=== PATIENT | male | born 1945 | race Asian ===

== ENCOUNTER 2023-07-01 01:31 | Inpatient (IN) | payer MEDICARE, MEDICAID, SELFPAY ==
[2023-06-30 22:26] VITALS: BP 210/77
[2023-06-30 22:52] VITALS: BP 176/69
[2023-06-30 23:00] VITALS: BP 191/61
[2023-06-30 23:09] LABS: % Basophils 0.3 % (0-2); % Eosinophils 2.8 % (0-6); % Immature Granulocytes 0.4 % (0-0.5); % Lymphocytes 4.3 % (20.5-51.1); % Neutrophils 87.2 % (42.2-75.2); Absolute Eosinophils 0.4 10^3/uL (0-0.7); Absolute Immature Granulocytes 0.1 10^3/uL (0-0.05); Absolute Lymphocytes 0.7 10^3/uL (1.2-3.4); Absolute Monocytes 0.8 10^3/uL (0.1-0.6); Absolute Neutrophils 13.3 10^3/uL (1.4-6.5); Mean Corp Hgb Conc. 32.4 g/dL (33.0-37.0); Mean Corpuscular Hgb 29.3 pg (27.0-31.0); Mean Corpuscular Volume 90.4 fL (80.0-94.0); Mean Platelet Volume 9.7 fL (7.4-10.4); Nucleated Red Blood Cells % 0 % (-); Platelet Count 213 10^3/uL (130-400); Red Blood Cell Count 3.76 10^6/uL (4.70-6.10); Red Cell Dist. Width 17.5 % (11.5-14.5); White Blood Cell Count 15.3 10^3/uL (4.8-10.8)
[2023-06-30 23:15] LABS: Lactic Acid 1.1 mmol/L (0.7-2.0)
[2023-06-30 23:16] LABS: COVID-19 Antigen Negative (Negative)
[2023-06-30 23:20] LABS: ALT (SGPT) 19 U/L (0-50); AST (SGOT) 29 U/L (17-59); Albumin 4.3 g/dl (3.5-5.0); Alkaline Phosphatase 133 U/L (38-126); Blood Urea Nitrogen 45 mg/dl (9-20); Calcium 8.1 mg/dl (8.4-10.2); Carbon Dioxide 23 mmol/L (22-30); Chloride 95 mmol/L (98-107); Estimated Creatinine Clearance 7 ml/min; Glucose 160 mg/dl (70-99); Sodium 135 mmol/L (135-145); Total Bilirubin 0.6 mg/dl (0.2-1.3); Total Protein 7.5 g/dl (6.3-8.2); eGFR 6.49
[2023-06-30 23:32] LABS: NT-proBNP 5660 pg/ml; Troponin I 0.072 ng/ml
[2023-06-30 23:33] VITALS: BP 161/66
[2023-07-01] VITALS (69 sets, daily range): BP systolic 133–229; BP diastolic 48–100; PULSE 71–72; O2SAT 98–99; BMI 27.5
--- NOTE | 2023-07-01 00:16 | ED.GENMED ---
History of Present Illness
General
Chief Complaint: Breathing Problem
Source: patient and family
Exam Limitations: none
Time Seen by Provider: 06/30/23 22:30
Nursing documentation reviewed up to this point in time: agreed with
Travel History
Have you had any contact with someone who has COVID-19?: Unable to Answer
Do you have any symptoms of coronavirus? Fever > 100 degrees, chills, cough, shortness of breath, sore throat, loss of taste or smell, muscle aches, or headache?: Unable to Answer
History of Present Illness
History of Present Illness:
77 yo male w hx ESRD on HD , CHF, CVA, Htn, CAD, IDDM, Hypothyroid, anemia, lives with family, here for cough, sneezing, runny nose and increasing SOB past few days, suddenly worse today. Denies CP, abdominal pain.
Past History
Past History
ED Past Medical History: Other (Hypertension, diabetes, valvular heart disease)
Social History
Tobacco: Non-smoker
Alcohol: None
Family History
Family History: Hypertension
Review of Systems
Review of Systems
Allergies reviewed?: Yes
All Other Systems: ROS reviewed and negative except as documented in HPI and ROS
Constitutional: Reports fever and fatigue
Respiratory: Reports cough and trouble breathing
Cardiac: Denies chest pain
ABD/GI: Denies abdominal pain, nausea, vomiting or diarrhea
: Reports difficulty voiding and other (ESRD, Dialysis pt. Does make some urine)
Musculoskeletal: Denies edema
Skin: Reports other (RUE dialysis shunt)
Neurological: Denies headache or numbness
Phy Exam
Physical Exam
Physical Exam:
GENERAL: Acute distress with difficulty breathing. A&Ox3.
CONSTITUTIONAL: Temp 100.6 rectal
EYES: PERRL, conjunctivae normal
ENMT: moist mucus membranes
RESPIRATORY: Regular respirations, tachypneic, moderately labored, lungs with crackles bases. Pulse ox 96% RA
CARDIOVASCULAR: Regular rate and rhythm, no murmurs, no rubs.
GI: Soft, nontender, normal BS
MUSCULOSKELETAL: Moves with ease. Well perfused. No edema
SKIN: Warm, dry, normal
PSYCH: Anxious mood and affect.
NEUROLOGIC: Awake, alert and oriented. No focal neurological deficits
Scores
Heart Failure Risk
Heart Failure Risk Score: Yes
History of Stroke or TIA: Yes
History of intubation for respiratory distress: No
Heart rate on ED arrival >/= 110: No
SaO2 <90% on arrival on room air: No
HR >/=110 during 3min walk test (or too ill to perform test): Yes
ECG has acute ischemic changes: No
Urea >/=12mmol/L (BUN 33.6mg/dL): Yes
Serum CO2>/=35mmol/L: No
Troponin I or T elevated to ME Level (0.4mg/dL): Yes
NT-proBNP >/=5,000ng/L (5,000pg/ml): Yes
HF Risk Score: 7
Admission Status: VERY HIGH RISK 69.8% Consider admission to hospital
Course
Orders/Labs/Results
Orders:
Orders
06/30/23 22:23
Electrocardiogram (*1) Urgent
Reason for Study: Other
Other Reason for Exam: Respiratory Distress
EKG- Treatment ONCE
06/30/23 22:24
CR Chest Portable - 1 View Urgent
Comment:
Reason For Exam: respiratory distress
Reason Study Needs to be Portable: Patient Unstable
06/30/23 22:49
COVID-19 Antigen Urgent
Source: Nasal Swab
Complete Blood Count/With Diff Urgent
Comprehensive Metabolic Panel Urgent
Lactic Acid Urgent
NT-proBNP Urgent
Troponin I Urgent
06/30/23 22:51
Influenza A+B Rapid Molecular Urgent
RAPHAEL Source: Nasal Swab
Specimen Description:
07/01/23 00:02
Furosemide [Lasix] 40 mg IV NOW STA
07/01/23 01:00
Acetaminophen [Tylenol] 650 mg PO NOW STA
Furosemide [Lasix] 80 mg IV NOW STA
07/01/23 01:04
Admit/Transfer Patient As Directed
Co-Sign Provider:
Level of Care: Inpatient admission
Assign to:: IMU- Intermediate Care
Physician / Group: Con
Diagnosis: Pneumonia, CHF
Reason for Hospitalization: Pneumonia, CHF
Expected length of stay greater than two midnights?: Yes
ELOS- Estimated Length of Stay in days: 4
I certify the patient meets the requirements for IP care: Yes
07/01/23 01:07
Code Status As Directed
Resuscitation Status: Full Code
07/01/23 01:08
Vancomycin [Vancocin] 1,500 mg 0.9% Sodium Chloride [Nss] 20 ml 0.9% Sodium Chloride 250 ml [Nss] 250 ml IV NOW
07/01/23 01:10
Cefepime HCl [Maxipime] 1,000 mg IV NOW STA
Sterile Water [Sterile Water For Injection] 10 ml IV NOW STA
07/01/23 01:35
Blood Culture Q1M
RAPHAEL Source: Blood/Venous
Specimen Description:
Blood Culture Q1M
RAPHAEL Source: Blood/Venous
Specimen Description:
07/01/23 02:00
Flush (0.9% Sodium Chloride) [Flush (Nss)] See Dose Instructions IV PER PROTOCOL
VANCOMYCIN Pharmacy to Dose [VANCOCIN Pharmacy to Dose] 1 each Pharmacy To Prepare [Call Pharmacy To Prepare] 0 ml IV PER PROTOCOL
07/01/23 02:22
Troponin I Q6H
Acetaminophen [Tylenol] 650 mg PO Q4HPRN PRN
Albuterol Nebs [Ventolin Nebules] 2.5 mg INH R Q4HPRN PRN
Dextrose 50%-Water [Dextrose 50% Syringe] 12.5 grams IV [id number] PRN
Glucagon [GlucaGen] 1 mg IM PRN PRN
Morphine Sulfate 2 mg IV Q4HPRN PRN
Polyethylene Glycol Powder [Miralax] 17 grams PO DAILY PRN
07/01/23 02:22
Consult Notification Routine
Specialty to Notify: Nephrology
NEPHROLOGY CONSULT Routine
Consulting Provider: Clara Ayala
Was physician already notified: No
Reason for consult: ESRD
TSH Reflex To Free T4 Routine
Urinalysis Reflex To Culture Routine
Activity As Directed
Activity Level: Ambulate
With Assistance
Bedside Glucose Monitoring As Directed
Frequency: AC&HS
Additional Instructions:: Change to q6h if pt on TPN, tube feeding or not eating
Bladder Scan As Directed
Follow Bladder Retention/Intermittent Cath Algorithm?: Yes
PRN if no void in __ hours: 6
Frequency: Per Retention Algorithm
If Bladder Scan Result >: 400
then:: Straight cath
EKG with chest pain [ECG as needed] As Directed
ECG as needed for:: Chest Pain
I/O [Intake/ Output] As Directed
Frequency: Per unit guidelines
Orthostatic Vital Signs As Directed
Orthostatic VS Frequency: BID
Pneumatic Compression Sleeves As Directed
Type: Knee high
Straight Cath As Directed
Frequency: Per Retention Algorithm
Additional Instructions: straight cath as needed per acute urinary retention algorithm for 24 hrs
Additional Instructions: for bladder scan greater than 400 mL
Vital Signs As Directed
Frequency: Per unit guidelines
Weight As Directed
Frequency: Daily
Oxygen Therapy [O2 Therapy] [RESP] Routine
Titrate/Wean O2 to maintain O2 sat greater than (%): 94
Rx Incentive Spirometry [RESP] Routine
Frequency: q1h while awake
Ot Eval And Treat Routine
PT Consult [Pt Eval And Treat] Routine
Activity Level: Ambulate
With Assistance
DX Deep Vein Thrombosis Video Routine
07/01/23 06:00
EKG [Electrocardiogram (*1)] IN AM
Reason for Study: Chest Pain
2000 calorie (17 carb) Diabetic
At Your Request: Limited, Egg Gatherer Required
Does patient need a safe tray?: No
Fluid Restriction: 1440 mL/day (48 oz)
Basic Metabolic Panel IN AM
Complete Blood Count/No Diff IN AM
Glycohemoglobin (HgbA1c) IN AM
LFT [Vfjpo-Obju-Wqqkycg] IN AM
Magnesium IN AM
Phosphorus IN AM
Levothyroxine [Synthroid] 75 mcg PO DAILY@0600
07/01/23 07:30
Insulin Aspart Corrective Low [Novolog Flexpen-Low Resistance] See Protocol SC AC
Insulin Aspart [NOVOLOG vial] 6 units SC AC
07/01/23 08:00
Clopidogrel Bisulfate [Plavix] 75 mg PO DAILY
Guaifenesin [Mucinex] 600 mg PO Q12
Heparin 5,000 units SC Q12
HydrALAZINE [Apresoline] 50 mg PO TID
ISOSORBIDE MONOnitrate ER [Imdur (Extended Release)] 30 mg PO DAILY
nifedipine 40 mg PO BID
07/01/23 08:22
Troponin I Q6H
07/01/23 14:22
Troponin I Q6H
07/01/23 22:00
Sennosides [Senokot] 17.2 mg PO HS
07/02/23 18:00
Cefepime HCl [Maxipime] 1,000 mg IV QPM
Abnormal Lab Results
06/30/23
22:49
WBC 15.3 H 10^3/uL
(4.8-10.8)
RBC 3.76 L 10^6/uL
(4.70-6.10)
Hgb 11.0 L g/dL
(13.0-18.0)
Hct 34.0 L %
(39.0-52.0)
MCHC 32.4 L g/dL
(33.0-37.0)
RDW 17.5 H %
(11.5-14.5)
Abs Immat Gran (auto) 0.1 H 10^3/uL
(0-0.05)
Absolute Neuts (auto) 13.3 H 10^3/uL
(1.4-6.5)
Absolute Lymphs (auto) 0.7 L 10^3/uL
(1.2-3.4)
Absolute Monos (auto) 0.8 H 10^3/uL
(0.1-0.6)
Neutrophils % 87.2 H %
(42.2-75.2)
Lymphocytes % 4.3 L %
(20.5-51.1)
Chloride 95 L mmol/L
(98-107)
BUN 45 H mg/dl
(9-20)
Creatinine 7.9 H* mg/dL
(0.7-1.3)
Glucose 160 H mg/dl
(70-99)
Calcium 8.1 L mg/dl
(8.4-10.2)
Alkaline Phosphatase 133 H U/L
(38-126)
Troponin I 0.072 H* ng/ml
06/30/23 22:49
06/30/23 22:49
Vital Signs
Initial and Last Documented VS:
Initial Vital Signs
Temp Pulse Resp BP Pulse Ox
98.7 F 95 30 210/77 96
06/30/23 22:26 06/30/23 22:26 06/30/23 22:26 06/30/23 22:26 06/30/23 22:26
Last Documented Vital Signs
Temp Pulse Resp BP Pulse Ox
100.0 F 98 24 194/64 98
07/01/23 02:45 07/01/23 02:30 07/01/23 02:30 07/01/23 01:30 07/01/23 02:45
MDM/Problems Addressed
Differential Diagnosis Includes:
PNA, CHF
MDM/Problems Addressed:
77 yo male w hx ESRD on HD M-W-, CHF, CVA, Htn, CAD, IDDM, Hypothyroid, anemia, lives with family, here for cough, sneezing, runny nose and increasing SOB past few days, suddenly worse today. Denies CP, abdominal pain.
Temp 100.6 rectal
Moderate distress with labored respirations and grunting with relatively unremarkable VS and Pulse ox 96% RA
EKG: NSR Long QT
11:30 p.m.
CBC: WBC15.3 w neutrophilia
CMP: BUN/creat 45/7.9
Troponin mild elevation most likely from CKD, fluid overload
BNP 5660
Covid neg
CXR: Radiology report read: IMPRESSION:
Mild interstitial edema suggests mild CHF or mild volume overload.
Plan: Lasix given. Admit: CHF, ESRD
07/01/23 12:30 a.m.
Pt much more calm. VSS
Hospitalist notified of admission
*Critical Care Note
Total Time (30-74mins, 75-104mins- exclusive of procedures): Not Applicable
ED Attending Note
-
Portions of this chart may have been created with voice recognition software.� Occasional wrong word or��sound alike� substitutions may have occurred due to the inherent limitations of voice recognition software.
Discharge Plan
Departure
Patient Disposition: Admit
Date of Disposition: 07/01/23
Time of Disposition: 00:27
Presentation/result/management discussed w/ accepting MD/DO: Hospitalist
Condition: Fair
Covid-19: Negative COVID-19
Discharge Problem:
CHF (congestive heart failure), ESRD (end stage renal disease) on dialysis
Interventions
Interventions:
*Risk Screen - Suicide Last Done: 06/30/23 22:26
*General Assessment Last Done: 06/30/23 22:26
*Neglect/Abuse Screening Last Done: 06/30/23 22:26
ED- Fall Risk Assessment Last Done: 06/30/23 23:01
*ED COVID-19 Vaccine History Last Done: 07/01/23 02:25
*Nursing Disposition Last Done: 07/01/23 02:15
ED- Cardiac Assessment Last Done: 06/30/23 23:01
ED- Pulmonary Assessment Last Done: 06/30/23 23:01
Discharge Date and Time
Discharge Date/Time: 07/01/23 02:17
--- NOTE | 2023-07-01 01:14 | HPS.HSE ---
Family Physician
-
Family Physician: Ricci Garber
Chief Complaint
-
SOB, Cough
History of Present Illness
Patient is a 77y M with PMH significant for ESRD on HD, HTN and DM-II who presents to ED complaining of cough and SOB. History obtained from patient and from family at the bedside. Patient initially developed cough / cold symptoms about 4 days
ago. Multiple family members at home have recently been ill with similar respiratory complaints. Patient had gradually worsening symptoms of hacking, minimally productive cough. This evening he became increasingly SOB and presented to the ED for
further evaluation.
Patient denies any headache, sore throat, chest pain. He has some upper abdominal discomfort that occurs with coughing. He has been nauseated but has had no emesis.
He denies any diarrhea, black or bloody stools.
He does make urine and denies any new urinary symptoms.
He receives dialysis and has not missed any sessions or had any recent issues.
Medical History
Past Medical History
Past Medical History: Reports Other
Additional Past Medical History:
ESRD on HD (MWF)
ASCVD (Carotid Stenosis, CAD, CVA)
Hypertension
DM-II
Hypothyroidism
Nephrolithiasis
Past Surgical History: Reports Other
Additional Past Surgical History:
PD Catheter Placement / Removal
LUE AVG
Social History
Tobacco: Non-smoker
Alcohol: None
Drug: None
Living: With Family
Family History
Family History: Not pertinent
Allergies / Home Medications
Allergies reflects when Allergies were last updated in [employer].
Home Medications with original date entered in [employer]
Allergy/Medication List:
Allergies
Allergy/AdvReac Type Severity Reaction Status Date / Time
No Known Allergies Allergy Verified 06/30/23 22:33
Home Medications
atorvastatin 10 mg tablet 10 mg PO DAILY 05/09/21
bumetanide 2 mg tablet 4 mg PO DAILY 05/09/21
clopidogrel 75 mg tablet (Plavix) 75 mg PO DAILY 05/09/21
hydralazine 100 mg tablet 50 mg PO TID 05/09/21
insulin aspart U-100 100 unit/mL subcutaneous solution (Novolog U-100 Insulin aspart) 10 unit SC AC 05/09/21
insulin glargine 100 unit/mL (3 mL) subcutaneous pen (Lantus Solostar U-100 Insulin) 11 unit SC HS 05/09/21
levothyroxine 75 mcg tablet (Euthyrox) 75 mcg PO DAILY 05/09/21
lisinopril 20 mg tablet 40 mg PO DAILY 05/09/21
nifedipine 20 mg capsule 40 mg PO BID 05/09/21
omeprazole 40 mg capsule,delayed release 40 mg PO DAILY 05/09/21
cholecalciferol (vitamin D3) 25 mcg (1,000 unit) tablet (Vitamin D3) 25 mcg PO DAILY 08/13/22
therapeutic multivitamin 1 tab PO DAILY 08/13/22
acetaminophen 500 mg tablet (Tylenol Extra Strength) 1,000 mg PO Q6H PRN fever 06/30/23
guaifenesin 100 mg/5 mL oral liquid 200 mg PO Q8HPRN PRN cough 06/30/23
isosorbide mononitrate 30 mg tablet,extended release 24 hr 30 mg PO DAILY 06/30/23
ondansetron HCl 4 mg tablet 4 mg PO Q8H PRN nausea 06/30/23
Review of Systems
-
History Source: Patient and Family
A 12 point ROS was completed and negative except as noted: Yes
Constitutional: Reports Fever, Fatigue and Chills
EENT: Denies Sore Throat
Respiratory: Reports Cough and Trouble Breathing
Cardiac: Denies Chest Pain or Palpitations
Abdomen/GI: Reports Abdominal Pain, Nausea and Other (Abdominal distention.); Denies Vomiting, Diarrhea, Constipated, Bloody Stools or Black Stools
: Denies Dysuria, Frequency or Flank Pain
Musculoskeletal: Denies Joint Pain or Edema
Neurological: Denies Dizzy or Headache
Psych: Denies Depression or Anxiety
Physical Exam
Vital Signs
Vital Signs
Temp Pulse Resp BP Pulse Ox
100.6 F H 82 24 163/70 95
06/30/23 23:00 07/01/23 00:45 07/01/23 00:45 07/01/23 00:00 07/01/23 00:45
Physical Exam
General: Other (Ill-appearing 77y M in moderate distress due to cough / dyspnea.)
HEENT: Other (Dry MM, poor dentition. )
Respiratory: Other (Coarse breath sounds mostly appreciated over the R base. Pos scattered rales and expiratory wheezes.)
Cardiac: S1/S2, Regular Rhythm and Murmur (II/ RISHABH); No Rub
GI: Soft, Normal Bowel Sounds and Other (Mild epigastric tenderness. Softly distended. Pos BS.)
Musculoskeletal: No Clubbing, No Cyanosis and No Edema
Hematologic/Lymphatic: Other (LUE AVG with palpable thrill.)
Psych: No Anxious or Depressed
Laboratory Results
-
06/30/23 22:49
06/30/23 22:49
Laboratory Results
Lactic Acid 1.1 mmol/L (0.7-2.0) 06/30/23 22:49
Total Bilirubin 0.6 mg/dl (0.2-1.3) 06/30/23 22:49
AST 29 U/L (17-59) 06/30/23 22:49
ALT 19 U/L (0-50) 06/30/23 22:49
Alkaline Phosphatase 133 U/L (38-126) H 06/30/23 22:49
Troponin I 0.072 ng/ml H* 06/30/23 22:49
Impression/Plan
-
A/P: Patient is a 77y M with PMH significant for ESRD on HD, ASCVD, HTN and DM-II who presents to ED complaining of several days of progressive cough and SOB.
Pneumonia
Sepsis secondary to the above
- Admit for further evaluation and treatment.
- Patient presents with fever, tachypnea and leukocytosis with cough / respiratory complaints and recent known sick contacts.
- IV abx. Check blood cultures. Check UA / culture as patient is not anuric.
- COVID and Flu negative in the ED this evening.
- Supportive care including nebs, mucolytics, etc.
- Follow for clinical improvement.
Acute on Chronic HFpEF
ESRD on HD
- Suspect that infectious process is primary issue here; however, patient likely does have contributing degree of hypervolemia.
- Has abdominal distention which is typically where he 'holds' his fluid build up.
- IV Lasix x 1 dose now.
- Nephrology evaluation for HD needs in the AM.
- Follow daily weights, I/Os, etc.
ASCVD
- Stable. Patient denies any chest pain / palpitations.
- Continue usual CV med regimen including Plavix, statin, etc.
- Monitor on telemetry.
Benign Hypertension
- Stable. Continue usual outpatient med regimen with holding parameters.
- Adjust as needed for BP control.
DM-II
- Stable. Continue basal : bolus insulin regimen.
- Follow glucose and cover with SSI as needed.
- Update A1C.
Non-Ischemic Myocardial Injury
- Troponin mildly elevated on initial labs.
- Suspect this is secondary to mild hypervolemia, acute infectious process / sepsis and HD status.
- EKG is without evident / acute ischemia.
- Continue to follow troponin to peak.
DVT Prophylaxis: Subcut Heparin
Code Status: Full
[2023-07-01] MEDS: TYLENOL 650 MG PO (01:26)
[2023-07-01] MEDS: VANCOCIN 300 ML IV (01:26)
[2023-07-01] MEDS: VANCOCIN 300 MG IV (01:26)
[2023-07-01] MEDS: STERILE WATER FOR INJECTION 10 ML IV ×2 (01:26→20:22)
[2023-07-01] MEDS: MAXIPIME 1000 MG IV ×2 (01:27→20:22)
[2023-07-01] MEDS: LASIX 80 MG IV (01:27)
[2023-07-01] MEDS: ROBITUSSIN 200 MG PO (02:49)
--- NOTE | 2023-07-01 03:12 | PTCARENOTE ---
Received report from ED RN. Pt. arrived to ICU [id number] via stretcher. AAOx3. HUTCHINSON, weak. HUSLIA. SR on tele, HR 80-90s. Hypertensive 180-190 systolic. GENOVEVA Lucas notified- monitor for now, until cough and restlessness improves then reeavulate need for
PRN meds. Trace LE edema. On 2L NC, pulse ox 98%. Audible wheeze present. Scattered crackles 1/[address] up B/L. Harsh productive cough. Robitussin given. Sputum clear, frothy. RR 20s-30s. Round abd, hypoactive bowel sounds. Complaints of tenderness in
abdomen from coughing. Pt. reports he voids twice normally at home- will monitor for void. L UE fistula + B/T. R AC #20 with vanco infusing. Call anthony in reach.
[2023-07-01] MEDS: VENTOLIN NEBULES 2.5 MG INH ×5 (03:53→23:09)
[2023-07-01 04:06] LABS: Hematocrit 30.5 % (39.0-52.0); Hemoglobin 9.8 g/dL (13.0-18.0); Mean Corp Hgb Conc. 32.1 g/dL (33.0-37.0); Mean Corpuscular Hgb 29.2 pg (27.0-31.0); Mean Corpuscular Volume 90.8 fL (80.0-94.0); Mean Platelet Volume 10.1 fL (7.4-10.4); Platelet Count 197 10^3/uL (130-400); Red Blood Cell Count 3.36 10^6/uL (4.70-6.10); Red Cell Dist. Width 17.2 % (11.5-14.5); White Blood Cell Count 16.3 10^3/uL (4.8-10.8)
[2023-07-01 04:36] LABS: ALT (SGPT) 17 U/L (0-50); AST (SGOT) 23 U/L (17-59); Albumin 3.7 g/dl (3.5-5.0); Alkaline Phosphatase 123 U/L (38-126); Blood Urea Nitrogen 46 mg/dl (9-20); Calcium 7.6 mg/dl (8.4-10.2); Carbon Dioxide 23 mmol/L (22-30); Chloride 96 mmol/L (98-107); Direct Bilirubin 0.6 mg/dl (0.0-0.4); Estimated Creatinine Clearance 7 ml/min; Glucose 176 mg/dl (70-99); Magnesium 1.9 mg/dl (1.6-2.3); Phosphorus 3.7 mg/dl (2.5-4.5); Potassium 4.2 mmol/L (3.5-5.1); Sodium 135 mmol/L (135-145); Total Bilirubin 0.6 mg/dl (0.2-1.3); Total Protein 6.6 g/dl (6.3-8.2); eGFR 6.03
[2023-07-01 04:40] LABS: Troponin I 0.082 ng/ml
--- NOTE | 2023-07-01 04:50 | PTCARENOTE ---
BP remained elevated SBP >180 until pt. fell asleep after receiving PRN neb treatment. Once asleep, BP 150s/60s. FIELD [employer] CREWMEMBER aware. Nitro gtt ordered to maintain SBP<160. Will start gtt PRN.
[2023-07-01 04:58] LABS: TSH Reflex To Free T4 1.76 uIU/ml (0.47-4.68)
[2023-07-01] MEDS: SYNTHROID 75 MCG PO (05:53)
[2023-07-01] MEDS: APRESOLINE 50 MG PO ×3 (06:13→22:02)
[2023-07-01] MEDS: IMDUR (EXTENDED RELEASE) 30 MG PO (06:13)
--- NOTE | 2023-07-01 06:15 | PTCARENOTE ---
BP spiked again to 177/54. Discussed with GENOVEVA Lucas- verbal order to hold off on nitro gtt and first give 0800 doses of hydralazine and imdur that are ordered to see if that controls BP. Doses administered. Will monitor
[2023-07-01] MEDS: MUCINEX 600 MG PO ×2 (07:23→20:21)
[2023-07-01] MEDS: HEPARIN 5000 UNITS SC ×2 (07:23→20:20)
[2023-07-01] MEDS: PLAVIX 75 MG PO (07:23)
[2023-07-01 08:01] LABS: Glucose - Point of Care 167 mg/dl (70-99)
--- NOTE | 2023-07-01 08:03 | PTCARENOTE ---
0700 Patient in bed, on 2L of oxygen. AAO x3, Language barrier, able to understand some Malian. Denies chest pain and nausea. Frequent moist strong, productive cough with white thin mucus. Dyspnea at rest and exertion, course, wheezing. Abdomen
round non-distended. Anuric. Peripheral line : RT AC FLUSHED CAPPED: Left Upper arm AV shunt +bruit +thrill. TRACE EDEMA TO BL LE. oral care self performed. HOB elevated call anthony within reach
--- NOTE | 2023-07-01 08:29 | CM ---
Patient seen at bedside. Patient lives with daughter in 2 story home with one step to enter per prior assessment in August. Patient goes to HD M/W/F at [facility] in [place]. Patient has limited Divehi and Patient daughter assists with
translation. CM to come back in to review discharge planning needs. CM will continue to follow for discharge planning needs.
Plan; home with family watch for VN needs.
--- NOTE | 2023-07-01 08:47 | PHA.VAN.IN ---
Assessment
- Assessment
Renal Function: Patient has ESRD, on chronic Hemodialysis
Hemodialysis Schedule: MWF
Concomitant Antimicrobials: cefepime
Laboratory Tests
07/01/23
09:00
Random Vancomycin 17.2
Level drawn prior to HD
Plan
- Plan
Initial / Loading Dose: Vanc 1500mg - 06/30 01:26
Maintenance Regimen: dosing by level / HD
Monitoring: consider pre-HD level for Wed
Give additional 500mg x1 at end of HD today since pre-HD level < 20
Pharmacokinetics Vancomycin I
- -
Patient Age: 77
Patient Sex: Male
Vancomycin Day #: 1
Indication: Pulmonary/Respiratory
Requesting Provider: Dr. Andujar
Pertinent Antimicrobial Allergies:
NKDA
Height / Weight:
Height 5 ft 6 in
Actual Weight 77.3 kg
Pertinent Past Medical History: ESRD on HD, DM2
- Vital Signs / Lab Results
Temp Pulse Resp BP Pulse Ox
96.5 F L 72 14 177/54 99
07/01/23 07:39 07/01/23 08:14 07/01/23 08:14 07/01/23 06:13 07/01/23 08:14
Lab Results - Hematology
06/30/23 07/01/23
22:49 03:44
WBC 15.3 H 16.3 H
Lab Results - Chemistry
06/30/23 07/01/23
22:49 03:44
BUN 45 H 46 H
Creatinine 7.9 H* 8.4 H*
Estimated Creat Clear 7 7
Albumin 4.3 3.7
06/30/23
22:49
Lactic Acid 1.1
Microbiology Results
06/30/23 22:51 Influenza Types A & B (DIALLO) - Final
Nasal Swab Negative for Influenza A & B, NAAT
Negative results must be combined with clinical observations
and patient history.
Nucleic Acid Amplification test (NAAT)performed on the
[employer] NOW platform.
[2023-07-01] MEDS: NOVOLOG FLEXPEN-LOW RESISTANCE 1 UNITS SC (09:06)
[2023-07-01] MEDS: NOVOLOG FLEXPEN 6 UNITS SC ×3 (09:07→19:10)
[2023-07-01 09:39] LABS: Troponin I 0.098 ng/ml
[2023-07-01 09:40] LABS: Vancomycin Random 17.2 ug/ml
--- NOTE | 2023-07-01 09:54 | W.PN.HOSP.TC ---
Today's Communication/Plan
-
cont ABX
diuresis
HD
follow cultures
Assessment / Plan
Assessment / Plan
pt is a 77 year old male
sepsis due to Pneumonia- Patient presents with fever, tachypnea and leukocytosis with cough / respiratory complaints and recent known sick contacts - IV abx. Check blood cultures. Check UA / culture as patient is not anuric - COVID and Flu
negative - Supportive care including nebs, mucolytics, etc.- Follow for clinical improvement.
Acute on Chronic HFpEF--ESRD on HD- Suspect that infectious process is primary issue here; however, patient likely does have contributing degree of hypervolemia- Has abdominal distention which is typically where he 'holds' his fluid build up-
Nephrology evaluation for HD needs in the AM- Follow daily weights, I/Os, etc.
ASCVD- Stable. Patient denies any chest pain / palpitations - Continue usual CV med regimen including Plavix, statin, etc - Monitor on telemetry.
Essential Hypertension --Stable. Continue usual outpatient med regimen with holding parameters- Adjust as needed for BP control.
DM-II - Stable. Continue basal:bolus insulin regimen - Follow glucose and cover with SSI as needed - Update A1C.
Non-Ischemic Myocardial Injury - Troponin mildly elevated on initial labs - Suspect this is secondary to mild hypervolemia, acute infectious process / sepsis and HD status - EKG is without evident / acute ischemia- Continue to follow troponin to
peak.
DVT Prophylaxis: Subcut Heparin
Code Status: Full
Anticipated Discharge: > 48 hours
Subjective/Interval History
-
Date of Service: July 01, 2023
pt does not speak Niuean
Objective Data
-
Labs:
Laboratory Results
06/30/23 07/01/23
22:49 03:44
WBC 15.3 H 16.3 H
Hgb 11.0 L 9.8 L
Hct 34.0 L 30.5 L
Plt Count 213 197
Sodium 135 135
Potassium 4.0 4.2
Chloride 95 L 96 L
Carbon Dioxide 23 23
BUN 45 H 46 H
Creatinine 7.9 H* 8.4 H*
Glucose 160 H 176 H
Calcium 8.1 L 7.6 L
Total Bilirubin 0.6 0.6
AST 29 23
ALT 19 17
Alkaline Phosphatase 133 H 123
Vital Signs:
max temp for 24 hours
07/01/23
04:04
Temp 100.6 F H
Vital Signs
Temp Pulse Resp BP Pulse Ox
96.5 F L 72 14 177/54 99
07/01/23 07:39 07/01/23 08:14 07/01/23 08:14 07/01/23 06:13 07/01/23 08:14
I&O
06/30/23 07/01/23 07/02/23
06:59 06:59 06:59
Intake Total 250 / 250
Balance 250 / 250
Review of Systems
-
Unable to obtain full review of systems at this time due to: Language Barrier
Respiratory: Reports Cough
Physical Exam
-
General: Well Developed, Well Nourished and No Apparent Distress
HEENT: Normocephalic and Atraumatic
Respiratory: Rhonchi
Cardiac: Regular Rhythm and S1/S2; Negative Murmur
GI: Soft, Nontender, Nondistended and Normal Bowel Sounds
Musculoskeletal: No Clubbing, No Cyanosis and No Edema
Skin: Warm
Neuro: Awake
--- NOTE | 2023-07-01 10:41 | W.CON.NEPH ---
Consultation
-
Date/Time Consultation Requested: 07/01/23 7a
Date/Time Consultation Performed: 07/01/23 9a
Requesting Provider: Dr. Andujar
Performing Provider: Dr Waters
Reason for Consultation: ESRD
Medical History
-
Chief Complaint: ESRD
History of Present Illness:
This is a 77-year-old [place] male with end-stage renal disease on hemodialysis for 5 years time via an AV graft in the left upper arm. He had undergone dialysis on Saturday without difficulty. By his report as well as his family's he began having
some congestion night. He went to dialysis on Saturday without issue. On Saturday the congestion became worse and he developed a fever. He also developed shortness of breath. As a result he came to the emergency room yesterday and was
admitted. He is presumed to have sepsis from pneumonia. His diabetes is controlled on insulin therapy and he has hypertension which is controlled on a multidrug regimen. We are asked to assist with his ESRD.
Past Medical History
ESRD, anemia, coronary artery disease, diabetes mellitus type 2, carotid stenosis, hypothyroidism, hypertension
Social History
Tobacco: Non-Smoker
Alcohol: None
Family History
Family History: Not Pertinent
Allergies / Home Medications
Allergy/AdvReac Type Severity Reaction Status Date / Time
No Known Allergies Allergy Verified 06/30/23 22:33
�Medication �Instructions �Recorded �Confirmed �Type
atorvastatin 10 mg tablet 10 mg PO DAILY 05/09/21 06/30/23 History
bumetanide 2 mg tablet 4 mg PO DAILY 05/09/21 06/30/23 History
clopidogrel 75 mg tablet (Plavix) 75 mg PO DAILY 05/09/21 06/30/23 History
hydralazine 100 mg tablet 50 mg PO TID 05/09/21 06/30/23 History
insulin aspart U-100 100 unit/mL 10 unit SC AC 05/09/21 06/30/23 History
subcutaneous solution (Novolog
U-100 Insulin aspart)
insulin glargine 100 unit/mL (3 11 unit SC HS 05/09/21 06/30/23 History
mL) subcutaneous pen (Lantus
Solostar U-100 Insulin)
levothyroxine 75 mcg tablet 75 mcg PO DAILY 05/09/21 06/30/23 History
(Euthyrox)
lisinopril 20 mg tablet 40 mg PO DAILY 05/09/21 06/30/23 History
nifedipine 20 mg capsule 40 mg PO BID 05/09/21 06/30/23 History
omeprazole 40 mg capsule,delayed 40 mg PO DAILY 05/09/21 06/30/23 History
release
cholecalciferol (vitamin D3) 25 25 mcg PO DAILY 08/13/22 06/30/23 History
mcg (1,000 unit) tablet (Vitamin
D3)
therapeutic multivitamin 1 tab PO DAILY 08/13/22 06/30/23 History
acetaminophen 500 mg tablet 1,000 mg PO Q6H PRN fever 06/30/23 06/30/23 History
(Tylenol Extra Strength)
guaifenesin 100 mg/5 mL oral liquid 200 mg PO Q8HPRN PRN cough 06/30/23 06/30/23 History
isosorbide mononitrate 30 mg 30 mg PO DAILY 06/30/23 06/30/23 History
tablet,extended release 24 hr
ondansetron HCl 4 mg tablet 4 mg PO Q8H PRN nausea 06/30/23 06/30/23 History
Review of Systems
-
Shortness of breath, cough, fever. No chest pain, no abdominal pain, no edema. The remainder of the complete review of systems was negative
Physical Exam
Vital Signs
Vital Signs
Temp Pulse Resp BP Pulse Ox
96.5 F L 72 14 177/54 99
07/01/23 07:39 07/01/23 08:14 07/01/23 08:14 07/01/23 06:13 07/01/23 08:14
Lab Results
WBC 16.3 10^3/uL (4.8-10.8) H 07/01/23 03:44
RBC 3.36 10^6/uL (4.70-6.10) L 07/01/23 03:44
Hgb 9.8 g/dL (13.0-18.0) L 07/01/23 03:44
Hct 30.5 % (39.0-52.0) L 07/01/23 03:44
Plt Count 197 10^3/uL (130-400) 07/01/23 03:44
Sodium 135 mmol/L (135-145) 07/01/23 03:44
Potassium 4.2 mmol/L (3.5-5.1) 07/01/23 03:44
Chloride 96 mmol/L (98-107) L 07/01/23 03:44
Carbon Dioxide 23 mmol/L (22-30) 07/01/23 03:44
BUN 46 mg/dl (9-20) H 07/01/23 03:44
Creatinine 8.4 mg/dL (0.7-1.3) H* 07/01/23 03:44
eGFR 6.03 07/01/23 03:44
Glucose 176 mg/dl (70-99) H 07/01/23 03:44
Calcium 7.6 mg/dl (8.4-10.2) L 07/01/23 03:44
Phosphorus 3.7 mg/dl (2.5-4.5) 07/01/23 03:44
Vvb-X-Lzhihiywikf Pept 5660 pg/ml 06/30/23 22:49
Albumin 3.7 g/dl (3.5-5.0) 07/01/23 03:44
Physical Exam
Patient is awake alert oriented and in no distress. Mood and affect were pleasant, insight and judgment were good. Pupils are equal round and reactive to light, extraocular movements are intact, sclera were anicteric. Hearing was normal, ears and
nose are intact. Oropharynx was clear. Neck was supple with trachea midline and no thyromegaly. Heart was regular rate and rhythm without rubs. Lower extremities without edema. Lungs were coarse to auscultation bilaterally and with normal
excursion. Bilateral wheezes and rhonchi. Abdomen was soft, nontender, with normal active bowel sounds, and no hepatosplenomegaly. Skin was without rash and with normal turgor. AVG with bruit and thrill.
Data Reviewed
-
Radiology: Image Personally Visualized and interpreted (Chest x-ray on June 30, 2023 by my reading shows mild edema only)
Medical Tests (Nuc Med, Echo etc): Image Personally Visualized and interpreted (EKG on July 01, 2023 by read shows normal sinus rhythm right bundle branch block)
Labs: Labs Reviewed by me (WBC 16.3, hemoglobin 9.8, platelets 197, creatinine 8.4, potassium 4.2)
Old Records: Reviewed
Assessment/Plan
-
Assessment:
ESRD
Pneumonia
Sepsis
CHF
Hypertension
Plan:
Dialysis today
ABDIAS ordered
Antibiotics adjusted for ESRD for sepsis
Await cultures
Discussed with patient and family
[2023-07-01 12:06] LABS: Glucose - Point of Care 129 mg/dl (70-99)
[2023-07-01] MEDS: NOVOLOG FLEXPEN-LOW RESISTANCE SC ×2 (12:33→18:03)
[2023-07-01 12:49] LABS: Glycohemoglobin (HgbA1c) 6.7 % (4.0-5.6)
[2023-07-01] MEDS: PROCARDIA XL (EXTENDED RELEASE) 30 MG PO ×2 (13:51→20:21)
--- NOTE | 2023-07-01 14:09 | PTCARENOTE ---
patient in bed. dialysis in progress. BP 192/66 MAP 102; SR 94; RR 17; POX 100 RA/. Translation provided by pt's daughter who is at the bedside. patient denies chest pain. Frequent non productive strong cough; Course, wheezing through. Appears as if
SOB. Neb Tx provided by RT . HOB elevated. will continue to monitor
--- NOTE | 2023-07-01 14:12 | W.PN.NEPH.HD ---
Assessment
-
Seen on HD. no complaints. VSS, access ok
Progress Note - Hemodialysis
-
Date of Service: July 01, 2023
Duration: 30 minutes and 3 hours
Potassium Bath: 3
Calcium Bath: 2.5
Opti-Dialyzer: 160
Ultrafiltration: EDW
Blood Flow: 400
Dialysate Flow: 600
Heparin: no
EPO: 6000 units
[2023-07-01] MEDS: RETACRIT 6000 UNITS IV (14:44)
[2023-07-01] MEDS: VANCOCIN HCL 500 MG 100 IV (15:21)
[2023-07-01 15:34] LABS: Troponin I 0.113 ng/ml
[2023-07-01] MEDS: NITROGLYCERIN PREMIX 250 IV (16:24)
[2023-07-01] MEDS: MORPHINE SULFATE 2 MG IV (16:36)
[2023-07-01] MEDS: APRESOLINE 10 MG IV (16:51)
--- NOTE | 2023-07-01 17:11 | PTCARENOTE ---
BP via RT upper arm and lower arm 213/76 SR 90 96% RA. Nitro qtt initiated earlier per protocol. At this time nitro at 20mcg infusing via RT AC; Dr Waters notified . New order Hydralazine 10 mg IV administered at 1500 . patient c/o of b/l Le pain 5/10
on pain scale level. per pt's daughter, pt has chronic arthritis pain. patient denies chest pain. denies SOB. On RA 96%, RR 16. however appears dyspnea at rest noted, wheezing. Morphine per prn order administered. Nebs will be administered.
[2023-07-01 18:13] LABS: Glucose - Point of Care 97 mg/dl (70-99)
[2023-07-01 19:22] LABS: Hepatitis B Surface Antigen Negative (Negative)
--- NOTE | 2023-07-01 19:23 | PTCARENOTE ---
patient in bed. AAO x3. Denies chest pain. dyspnea at rest with wheezing noted. Dry frequent strong cough. Atrovent will be order by Dr Brush
--- NOTE | 2023-07-01 20:00 | PTCARENOTE ---
Resumed care of pt laying in bed with family at bedside. Pt able to speak some broken Danish, Family able to translate when needed. pt AAOx3, tremors noted. Restless legs. Hr in the 80's in NSR with occ PVC's on the monitor. POX 100% on 2 LO2 NC.
Pt visibly tachypneic at rest, with audible ex wheezes noted. Pt with frequent moist cough. Lungs dec with ex wheezes. JETT. Hypo bowel, round obese abd. Pt with no urine output, Bladder scanned per MD order, 0 ml scanned at this time. Pt post HD
today 3kg off. Palpable peripheral pulses present. Knee high seq in place. Right AC int infusing Nitro gtt @40mcg/min to keep SBP <160. Pt repositioned per comfort. Will continue to monitor.
[2023-07-01] MEDS: DUONEB 3 ML INH (20:33)
[2023-07-01 21:32] LABS: Hepatitis B Surface Antibody Negative
[2023-07-01] MEDS: SENOKOT 17.1999999999999993 MG PO (22:01)
[2023-07-01] MEDS: LANTUS 0.100000000000000006 UNITS SC (22:01)
[2023-07-01 22:12] LABS: Glucose - Point of Care 233 mg/dl (70-99)
[2023-07-01 23:03] LABS: Troponin I 0.125 ng/ml
[2023-07-02] VITALS (46 sets, daily range): BP systolic 101–197; BP diastolic 40–97; BMI 26.9
[2023-07-02] MEDS: VENTOLIN NEBULES 2.5 MG INH (04:17)
[2023-07-02 04:21] LABS: Hematocrit 30.6 % (39.0-52.0); Mean Corp Hgb Conc. 32.7 g/dL (33.0-37.0); Mean Corpuscular Hgb 29.7 pg (27.0-31.0); Mean Corpuscular Volume 90.8 fL (80.0-94.0); Mean Platelet Volume 9.6 fL (7.4-10.4); Platelet Count 173 10^3/uL (130-400); Red Blood Cell Count 3.37 10^6/uL (4.70-6.10); Red Cell Dist. Width 17.7 % (11.5-14.5); White Blood Cell Count 8.5 10^3/uL (4.8-10.8)
[2023-07-02 04:51] LABS: Troponin I 0.195 ng/ml
[2023-07-02 05:02] LABS: ALT (SGPT) 16 U/L (0-50); AST (SGOT) 37 U/L (17-59); Albumin 3.7 g/dl (3.5-5.0); Alkaline Phosphatase 86 U/L (38-126); Blood Urea Nitrogen 24 mg/dl (9-20); Calcium 8.1 mg/dl (8.4-10.2); Carbon Dioxide 27 mmol/L (22-30); Chloride 97 mmol/L (98-107); Estimated Creatinine Clearance 12 ml/min; Glucose 134 mg/dl (70-99); Potassium 3.9 mmol/L (3.5-5.1); Sodium 138 mmol/L (135-145); Total Bilirubin 0.7 mg/dl (0.2-1.3); Total Protein 6.7 g/dl (6.3-8.2)
--- NOTE | 2023-07-02 05:42 | PTCARENOTE ---
SBP extremely labile. Nitro gtt adjusted accordingly. Troponin results discussed with Fareed TOMAS. Pt denies any complaints of chest pain. Family member sleeping on couch at bedside. Will continue to monitor.
[2023-07-02] MEDS: SYNTHROID 75 MCG PO (06:11)
[2023-07-02 07:55] LABS: Glucose - Point of Care 161 mg/dl (70-99)
[2023-07-02] MEDS: NOVOLOG FLEXPEN 6 UNITS SC ×3 (07:55→17:53)
[2023-07-02] MEDS: NOVOLOG FLEXPEN-LOW RESISTANCE 1 UNITS SC ×2 (07:55→17:53)
[2023-07-02] MEDS: HEPARIN 5000 UNITS SC ×2 (07:56→19:26)
[2023-07-02] MEDS: IMDUR (EXTENDED RELEASE) 30 MG PO ×2 (07:56→10:21)
[2023-07-02] MEDS: APRESOLINE 50 MG PO ×3 (07:56→22:16)
[2023-07-02] MEDS: PROCARDIA XL (EXTENDED RELEASE) 30 MG PO ×2 (07:57→19:28)
[2023-07-02] MEDS: PLAVIX 75 MG PO (07:57)
[2023-07-02] MEDS: MUCINEX 600 MG PO ×2 (07:57→19:27)
[2023-07-02] MEDS: DUONEB 3 ML INH ×4 (08:10→19:41)
--- NOTE | 2023-07-02 08:10 | W.PN.HOSP.TC ---
Today's Communication/Plan
-
Vanc/Cefepime - DC Vanc if MRSA swab neg; likely DC Cefepime if cultures remain negative
acapella
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
possible DC tomorrow
Assessment / Plan
Assessment / Plan
Patient is a 77y M with PMH significant for ESRD on HD, ASCVD, HTN and DM-II who presents to ED complaining of several days of progressive cough and SOB found to have sepsis 2/2 PNA
sepsis due to Pneumonia- Patient presents with fever, tachypnea and leukocytosis with cough / respiratory complaints and recent known sick contacts - IV Vanc/Cefepime. Check blood cultures. Check UA / culture as patient is not anuric - COVID and
Flu negative - Supportive care including nebs, mucolytics, etc.- Follow for clinical improvement.
-F/U MRSA swab, if negative then DC Vanc
-can likely narrow abx and DC tomorrow if cultures remain negative
Acute on Chronic HFpEF--ESRD on HD- Suspect that infectious process is primary issue here; however, patient likely does have contributing degree of hypervolemia- Has abdominal distention which is typically where he 'holds' his fluid build up-
appreciate renal- Follow daily weights, I/Os, etc.
ASCVD- Stable. Patient denies any chest pain / palpitations - Continue usual CV med regimen including Plavix, statin, etc - Monitor on telemetry.
Essential Hypertension -
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
-continue PULPIT OPERATOR regimen and wean nitro; OK to resume PULPIT OPERATOR Lisinopril today per renal
DM-II - Stable. Continue basal:bolus insulin regimen - Follow glucose and cover with SSI as needed - Update A1C.
Non-Ischemic Myocardial Injury - Troponin mildly elevated on initial labs - Suspect this is secondary to mild hypervolemia, acute infectious process / sepsis and HD status - EKG is without evident / acute ischemia- Continue to follow troponin to
peak.
DVT Prophylaxis: Subcut Heparin
Code Status: Full
Anticipated Discharge: 24 - 48 hours
Subjective/Interval History
-
Date of Service: July 02, 2023
states feeling well
breathing stable
Objective Data
-
Labs:
Laboratory Results
07/02/23
04:08
WBC 8.5
Hgb 10.0 L
Hct 30.6 L
Plt Count 173
Sodium 138
Potassium 3.9
Chloride 97 L
Carbon Dioxide 27
BUN 24 H
Creatinine 4.8 H*
Glucose 134 H
Calcium 8.1 L
Total Bilirubin 0.7
AST 37
ALT 16
Alkaline Phosphatase 86
Vital Signs:
Vital Signs
Temp Pulse Resp BP Pulse Ox
98.7 F 87 17 132/64 100
07/02/23 04:16 07/02/23 08:00 07/02/23 08:00 07/02/23 08:00 07/02/23 07:45
I&O
07/01/23 07/02/23 07/03/23
06:59 06:59 06:59
Intake Total 250 / 250 312 / 312
Balance 250 / 250 312 / 312
Review of Systems
-
History Source: Patient
All other systems: Reviewed and negative
Physical Exam
-
General: Well Developed, Well Nourished and No Apparent Distress
HEENT: Normocephalic and Atraumatic
Respiratory: Rhonchi
Cardiac: Regular Rhythm and S1/S2; Negative Murmur
GI: Soft, Nontender, Nondistended and Normal Bowel Sounds
Musculoskeletal: No Clubbing, No Cyanosis and No Edema
Skin: Warm
Neuro: Awake
Psych: Calm
Data Reviewed
-
Diagnostic Radiology: Report Reviewed by me
Labs: Labs Reviewed by me
[2023-07-02] MEDS: ZESTRIL 40 MG PO (09:01)
--- NOTE | 2023-07-02 09:05 | PTCARENOTE ---
pt resting in chair, bp remains high 168/52, did not adjust nitro at this time, gave lisinopril as ordered
--- NOTE | 2023-07-02 09:12 | W.PN.NEPH.PH ---
Today's Communication / Plan
-
HD tomorrow
Assessment/Plan
-
Assessment:
ESRD
Pneumonia
Sepsis
CHF
Hypertension
Plan:
Dialysis tomorrow
ABDIAS on HD
continue Abx for PNA
Await cultures
increase imdur to 60mg, wean gtt
follow troponin trend
-
-
Date of Service: July 02, 2023
CC / HPI / ROS
-
Chief Complaint:
ESRD
History of Present Illness:
on NTG gtt for HTN
tolerated HD yesterday
remains on supplemental O2 and Abx for presumed PNA
Review of Systems:
no CP
minimal SOB
Labs
-
Labs:
WBC 8.5 10^3/uL (4.8-10.8) 07/02/23 04:08
RBC 3.37 10^6/uL (4.70-6.10) L 07/02/23 04:08
Hgb 10.0 g/dL (13.0-18.0) L 07/02/23 04:08
Hct 30.6 % (39.0-52.0) L 07/02/23 04:08
Plt Count 173 10^3/uL (130-400) 07/02/23 04:08
Sodium 138 mmol/L (135-145) 07/02/23 04:08
Potassium 3.9 mmol/L (3.5-5.1) 07/02/23 04:08
Chloride 97 mmol/L (98-107) L 07/02/23 04:08
Carbon Dioxide 27 mmol/L (22-30) 07/02/23 04:08
BUN 24 mg/dl (9-20) H 07/02/23 04:08
Creatinine 4.8 mg/dL (0.7-1.3) H* 07/02/23 04:08
eGFR 11.80 07/02/23 04:08
Glucose 134 mg/dl (70-99) H 07/02/23 04:08
Calcium 8.1 mg/dl (8.4-10.2) L 07/02/23 04:08
Phosphorus 3.7 mg/dl (2.5-4.5) 07/01/23 03:44
Oau-C-Zymkcuzbrkv Pept 5660 pg/ml 06/30/23 22:49
Albumin 3.7 g/dl (3.5-5.0) 07/02/23 04:08
Physical Exam
-
Vital Signs:
Vital Signs
Temp Pulse Resp BP Pulse Ox
98.5 F 86 18 132/64 100
07/02/23 07:20 07/02/23 08:19 07/02/23 08:19 07/02/23 08:00 07/02/23 08:19
Cardiovascular:: Regular rate and rhythm
Respiratory:: Bilateral: Rhonchi and Bilateral: Wheeze
Lung Excursion:: Normal
Abdomen:: Nontender and Soft
Bowel Sounds:: Normal
Extremity Edema:: None: Bilateral:
[2023-07-02 10:21] LABS: Glucose - Point of Care 237 mg/dl (70-99)
[2023-07-02] MEDS: TYLENOL 650 MG PO (10:21)
--- NOTE | 2023-07-02 10:27 | PTCARENOTE ---
Called to pt room because he wasn't feeling well while in chair. Per family, a little dizzy, restless, c/o neck and leg pain. Sats 88% on room air, sbp 140s, felt warm but afebrile, blood sugar in 200s. Returned to bed, placed back on 2lnc.
Medicated with prn tylenol and increased dose of imdur as ordered. Nitro gtt decreased prior to back to bed with sbp 140s. Pt's daughter reported pt felt better in bed, remains sr, sats improved to 100 on 2l, still restless in bed. Daughter
reports that pt uses voltaren gel bid at home as well as lidoderm patches prn.
[2023-07-02 10:56] LABS: Troponin I 0.182 ng/ml
--- NOTE | 2023-07-02 11:41 | PTCARENOTE ---
pt reported tylenol helped a little with discomfort, but still somewhat sob. sats okay, but increased wob. bp improving after additional imdur and lisinopril this am. weaning ntg as charted
[2023-07-02 11:53] LABS: Glucose - Point of Care 203 mg/dl (70-99)
[2023-07-02] MEDS: NOVOLOG FLEXPEN-LOW RESISTANCE 2 UNITS SC (12:57)
--- NOTE | 2023-07-02 14:04 | CM ---
Patient seen at bedside with daughter present in ICU. Patient stated when daughter translated that he feels better. Daughter's impression is that patient better than yesterday. Patient plan is for discharge home with family. CM will continue to
follow for discharge planning needs.
Plan; home with family watch for home O2 needs, VN needs.
--- NOTE | 2023-07-02 16:47 | PTCARENOTE ---
pt remains off ntg since late morning. resting intermittently this afternoon. continues with restless legs, denies any complaints at present.
[2023-07-02 17:59] LABS: Glucose - Point of Care 163 mg/dl (70-99)
--- NOTE | 2023-07-02 18:23 | PTCARENOTE ---
pt opted to get oob to chair for dinner, minimal assist oob.
[2023-07-02] MEDS: MAXIPIME 1000 MG IV (19:26)
[2023-07-02] MEDS: STERILE WATER FOR INJECTION 10 ML IV (19:26)
[2023-07-02] MEDS: DICLOFENAC 1% TOPICAL GEL 2 GRAM TOPICAL (19:27)
[2023-07-02] MEDS: APRESOLINE 10 MG IV (20:41)
--- NOTE | 2023-07-02 22:00 | PTCARENOTE ---
Resumed care of pt laying in bed with family at bedside. Pt AAOx3, able to speak some broken Tuvaluan and understand Tuvaluan, family to help translate when needed. Hand tremors and restless legs noted. Hr in the 80's in NSR with BBB on the monitor.
Occ PVC's. POX 98-100% on 2 LO2 NC. Lungs dec with ex wheezes, scattered crackles/rhonchi, course lungs. JETT, tachypneic. + bowel, round obese abd. NO urine output, pt for HD in am. Pt reports no urge to void or have BM. Palpable peripheral pulses
present. knee high seq in place. heel elevated on pillows. Pt repositioned in bed per comfort, refusing pillow under hip at this time. Right AC int capped. LUE AV + B/T. BP elevated, scheduled medications administered as ordered, not with admin
parameters for PRN medication at this time. Family remains at bedside. Will continue to monitor.
[2023-07-02] MEDS: SENOKOT 17.1999999999999993 MG PO (22:16)
[2023-07-02] MEDS: LANTUS 0.100000000000000006 UNITS SC (22:17)
[2023-07-02 22:25] LABS: Glucose - Point of Care 98 mg/dl (70-99)
[2023-07-03] VITALS (30 sets, daily range): BP systolic 149–182; BP diastolic 52–104; BMI 27.3
[2023-07-03 04:42] LABS: Hematocrit 30.9 % (39.0-52.0); Hemoglobin 9.9 g/dL (13.0-18.0); Mean Corpuscular Hgb 29.4 pg (27.0-31.0); Mean Corpuscular Volume 91.7 fL (80.0-94.0); Mean Platelet Volume 9.9 fL (7.4-10.4); Platelet Count 172 10^3/uL (130-400); Red Blood Cell Count 3.37 10^6/uL (4.70-6.10); Red Cell Dist. Width 17.5 % (11.5-14.5)
[2023-07-03 05:19] LABS: Blood Urea Nitrogen 40 mg/dl (9-20); Calcium 7.9 mg/dl (8.4-10.2); Carbon Dioxide 23 mmol/L (22-30); Chloride 97 mmol/L (98-107); Estimated Creatinine Clearance 8 ml/min; Glucose 140 mg/dl (70-99); Potassium 4.1 mmol/L (3.5-5.1); Sodium 136 mmol/L (135-145); eGFR 7.77
[2023-07-03] MEDS: SYNTHROID 75 MCG PO (06:14)
[2023-07-03] MEDS: DUONEB 3 ML INH ×2 (07:24→11:47)
[2023-07-03 07:39] LABS: Glucose - Point of Care 151 mg/dl (70-99)
--- NOTE | 2023-07-03 09:00 | CM ---
Addendum entered by Destiney Staples 07/03/23 09:17:
IMM completed and form placed on chart. Reviewed with daughter PAC Data and she requested referral to [facility]. Plan for completion of HD and daughter to transport patient at approx 1pm.
Original Note:
Patient seen at bedside. Patient on HD, Patient from [facility] and per HD nurse they will send flow sheets to HD clinic. CM will review IMM with patient and daughter. CM will review with family need for VN supports. CM will continue to
follow for discharge planning needs.
Plan; home with VN
[2023-07-03] MEDS: NOVOLOG FLEXPEN-LOW RESISTANCE 1 UNITS SC ×2 (09:09→12:45)
--- NOTE | 2023-07-03 09:09 | W.PN.HOSP.TC ---
Today's Communication/Plan
-
anticipate d/c after HD today
finish ABX course
Assessment / Plan
Assessment / Plan
Patient is a 77y M with PMH significant for ESRD on HD, ASCVD, HTN and DM-II who presents to ED complaining of several days of progressive cough and SOB found to have sepsis 2/2 PNA
sepsis due to Pneumonia- Patient presents with fever, tachypnea and leukocytosis with cough/respiratory complaints and recent known sick contacts - change IV Vanco/Cefepime to oral meds-- blood cultures negative-- COVID and Flu negative -
Supportive care including nebs, mucolytics, etc.- Follow for clinical improvement.
-MRSA swab negative, DC Vanco--can likely narrow abx and DC tomorrow if cultures remain negative
Acute on Chronic HFpEF--ESRD on HD- Suspect that infectious process is primary issue here; however, patient likely does have contributing degree of hypervolemia- Has abdominal distention which is typically where he 'holds' his fluid build up-
appreciate renal- Follow daily weights, I/Os, etc.
ASCVD- Stable. Patient denies any chest pain / palpitations - Continue usual CV med regimen including Plavix, statin, etc - Monitor on telemetry.
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
DM-II - Stable. Continue basal:bolus insulin regimen - Follow glucose and cover with SSI as needed - Update A1C.
Non-Ischemic Myocardial Injury - Troponin mildly elevated on initial labs - Suspect this is secondary to mild hypervolemia, acute infectious process / sepsis and HD status - EKG is without evident / acute ischemia- Continue to follow troponin to
peak.
DVT Prophylaxis: Subcut Heparin
Code Status: Full
Anticipated Discharge: Today
Subjective/Interval History
-
Date of Service: July 03, 2023
getting HD
Objective Data
-
Labs:
Laboratory Results
07/03/23
04:09
WBC 8.0
Hgb 9.9 L
Hct 30.9 L
Plt Count 172
Sodium 136
Potassium 4.1
Chloride 97 L
Carbon Dioxide 23
BUN 40 H
Creatinine 6.8 H*
Glucose 140 H
Calcium 7.9 L
Vital Signs:
max temp for 24 hours
07/02/23
22:54
Temp 99.4 F
Vital Signs
Temp Pulse Resp BP Pulse Ox
97.8 F 81 15 179/82 97
07/03/23 07:36 07/03/23 07:27 07/03/23 07:27 07/03/23 06:06 07/03/23 07:27
I&O
07/02/23 07/03/23 07/04/23
06:59 06:59 06:59
Intake Total 312 / 312 480 / 480
Balance 312 / 312 480 / 480
Review of Systems
-
Unable to obtain full review of systems at this time due to: Language Barrier
Physical Exam
-
General: Well Developed, Well Nourished and No Apparent Distress
HEENT: Normocephalic, Atraumatic and Oxygen (2L)
Respiratory: Clear to Auscultation (anteriorly)
Cardiac: Regular Rhythm and S1/S2; Negative Murmur
GI: Soft, Nontender, Nondistended and Normal Bowel Sounds
Musculoskeletal: No Clubbing, No Cyanosis and No Edema
Neuro: Awake and Alert
[2023-07-03] MEDS: MUCINEX 600 MG PO (09:10)
[2023-07-03] MEDS: NOVOLOG FLEXPEN 6 UNITS SC ×2 (09:10→12:46)
[2023-07-03] MEDS: PROCARDIA XL (EXTENDED RELEASE) 30 MG PO (09:10)
[2023-07-03] MEDS: IMDUR (EXTENDED RELEASE) 60 MG PO (09:11)
[2023-07-03] MEDS: ZESTRIL 40 MG PO (09:11)
[2023-07-03] MEDS: APRESOLINE 50 MG PO (09:11)
[2023-07-03] MEDS: PLAVIX 75 MG PO (09:11)
[2023-07-03] MEDS: HEPARIN 5000 UNITS SC (09:11)
[2023-07-03] MEDS: DICLOFENAC 1% TOPICAL GEL 2 GRAM TOPICAL (09:12)
[2023-07-03] MEDS: RETACRIT 6000 UNITS IV (09:20)
--- NOTE | 2023-07-03 11:09 | PTCARENOTE ---
Pt receiving HD treatment, tolerating well with high BP's. NSR on tele with a BBB. O2 turned off, currently 97% on RA. Breath sounds with coarse scattered crackles and an ex wheeze on exertion. Plan to DC today, closer to 1300.
--- NOTE | 2023-07-03 11:28 | W.PN.NEPH.HD ---
Assessment
-
- planned for d/c today
Progress Note - Hemodialysis
-
Date of Service: July 03, 2023
Duration: 30 minutes and 3 hours
Potassium Bath: 3
Calcium Bath: 2.5
Opti-Dialyzer: 160
Blood Flow: 400
Dialysate Flow: 600
[2023-07-03 12:38] LABS: Glucose - Point of Care 155 mg/dl (70-99)
--- NOTE | 2023-07-03 17:21 | W.DCSUMMARY ---
Discharge Summary
Discharge Data
Date of Admission: 07/01/23
Date of Discharge: 07/03/23
-
Pending Results: No
Hospital Course
Primary care physician : Ricci Garber
Principal Discharge diagnosis : Sepsis due to pneumonia, acute on chronic diastolic congestive heart failure exacerbation
Chronic Discharge diagnosis : End-stage renal disease on hemodialysis, atherosclerotic cardiovascular disease, essential hypertension, type 2 diabetes mellitus, nonischemic myocardial injury
Hospital Course : Patient was a 77-year-old male with a language barrier as he does not speak much Romanian, who presented with cough, cold symptoms for 4 days prior to admission. Multiple family members have also been ill with respiratory
complaints. Patient had worsening symptoms of a hacking minimally productive cough. He became gradually short of breath and presented to the emergency department. He does make urine but denies any urinary symptoms he is on dialysis Saturday
Saturday and Fridays for end-stage renal disease. Patient was admitted.
Problem #1: Sepsis due to pneumonia. Patient was tachycardic, tachypneic and had fever with leukocytosis. Along with known sick contacts. He was started on IV vancomycin and cefepime MRSA screen was negative and Vanco was subsequently
discontinued. Blood cultures were checked and were negative. COVID and flu were negative. Patient was transitioned to oral Augmentin at discharge.
Problem #2: Acute on chronic diastolic congestive heart failure exacerbation. Volume status was managed by dialysis. He was given daily weights and I's and O's. Dialysis was continued through his hospitalization.
Problem #3: All other medical issues. These include End-stage renal disease on hemodialysis, atherosclerotic cardiovascular disease, essential hypertension, type 2 diabetes mellitus, nonischemic myocardial injury. These medical issues were stable
during his hospitalization. Medications were continued as able. He was continued on dialysis while here in the hospital.
Patient is stable for discharge home at this time. He is off oxygen. If there are any questions regarding this dictation or his hospital stay, please not hesitate to call. Our office number is [phone].
Important imaging findings :
CXR IMPRESSION:
Mild interstitial edema suggests mild CHF or mild volume overload.
Discharge Plan
-
Patient Disposition: Home with Home Care
Discharge Diagnosis/Procedures: Sepsis likely due to pneumonia, acute on chronic diastolic congestive heart failure with exacerbation, atherosclerotic cardiovascular disease, essential hypertension, type 2 diabetes mellitus, end-stage renal disease
on hemodialysis, nonischemic myocardial injury
Condition: Good
Diet: 2 Gram Sodium, Diabetic, Carb Controlled, Restrict fluids to 48 oz and Other diet
Additional Diets: 2 g potassium
Activity: As tolerated
Driving Restrictions: As prior to admission
Bathing Restrictions: None
Other Services: VN
Referrals:
Ricci Garber MD [Family Provider] - in less than 1 week
Prescriptions:
New
amoxicillin-pot clavulanate 500-125 mg tablet
1 tab PO Q12H Qty: 10 0RF
Continued
bumetanide 2 MG tablet
4 mg PO DAILY
atorvastatin 10 MG tablet
10 mg PO DAILY
nifedipine 20 mg Capsule
40 mg PO BID
lisinopril 20 MG tablet
40 mg PO DAILY
clopidogrel [Plavix] 75 MG tablet
75 mg PO DAILY
omeprazole 40 MG capsule,delayed release(DR/EC)
40 mg PO DAILY
levothyroxine [Euthyrox] 75 MCG tablet
75 mcg PO DAILY
hydralazine 100 MG tablet
50 mg PO TID
insulin glargine [Lantus Solostar U-100 Insulin] 100 unit/mL (3 mL) Insulin Pen
11 unit SC HS
insulin aspart U-100 [Novolog U-100 Insulin aspart] 100 unit/mL Solution
10 unit SC AC
therapeutic multivitamin Tablet
1 tab PO DAILY
cholecalciferol (vitamin D3) [Vitamin D3] 25 mcg (1,000 unit) Tablet
25 mcg PO DAILY
ondansetron HCl 4 mg Tablet
4 mg PO Q8H PRN (Reason: nausea)
isosorbide mononitrate 30 mg Tablet Extended Release 24 Hr
30 mg PO DAILY
acetaminophen [Tylenol Extra Strength] 500 mg Tablet
1,000 mg PO Q6H PRN (Reason: fever)
guaifenesin 100 mg/5 mL Liquid
200 mg PO Q8HPRN PRN (Reason: cough)
diclofenac sodium 1 % Gel
2 g TOPICAL BID Qty: 0 0RF
Rx Instructions:
arthritis knee pain
Discharge Orders:
Discharge Patient (As Directed); Ordered 07/03/23
Ordered By: Mariola Askew
Discharge Date and Time
Discharge Date/Time: 07/03/23 13:25
Print Language: GEORGIAN
== END 2023-07-03 13:25 | disposition home health service (06) | DRG 871 ==
LOC: ICU 01:31
PROVIDERS: Nurse Practitioner Primary Care; Registered Nurse; Student in an Organized Health Care Education/Training Program; ADMITTING PHYSICIAN Hospitalist; ATTENDING PHYSICIAN Internal Medicine; EMERGENCY PHYSICIAN Emergency Medicine; FAMILY PHYSICIAN Family Medicine; OTHER PHYSICIAN Specialist
PROC: 5A1D70Z Performance of Urinary Filtration, Intermittent, Less than 6 Hours Per Day (ICD-10-PCS; 2023-07-01)
DX: A41.89 Other specified sepsis (principal); I50.33 Acute on chronic diastolic (congestive) heart failure; N18.6 End stage renal disease; J18.9 Pneumonia, unspecified organism; I13.2 Hypertensive heart and chronic kidney disease with heart failure and with stage 5 chronic kidney disease, or end stage renal disease; I5A Non-ischemic myocardial injury (non-traumatic); E11.22 Type 2 diabetes mellitus with diabetic chronic kidney disease; I25.10 Atherosclerotic heart disease of native coronary artery without angina pectoris; Z11.52 Encounter for screening for COVID-19
CPT/HCPCS: 71045; 80048; 80053; 80202; 82248; 82962; 83036; 83605; 83735; 83880; 84100; 84443; 84484; 85025; 85027; 86706; 87040; 87070; 87340; 87502; 87811; 93005; 94640; 97162; 97167; 99285; P9047; Q5106

== ENCOUNTER 2023-07-20 21:45 | Inpatient (IN) | payer MEDICARE, OTHER, SELFPAY ==
[2023-07-20] VITALS (26 sets, daily range): BP systolic 139–231; BP diastolic 44–80
--- NOTE | 2023-07-20 16:22 | ED.GENMED ---
History of Present Illness
<Deysi Cloud PA-C - Last Filed: 07/20/23 21:26>
General
Chief Complaint: Abdominal Symptoms
Source: patient
Exam Limitations: none
Time Seen by Provider: 07/20/23 16:10
Nursing documentation reviewed up to this point in time: agreed with
Travel History
Have you had any contact with someone who has COVID-19?: No
Do you have any symptoms of coronavirus? Fever > 100 degrees, chills, cough, shortness of breath, sore throat, loss of taste or smell, muscle aches, or headache?: No
History of Present Illness
History of Present Illness:
This is a 78 y/o male with a PMH of end-stage renal disease on dialysis Saturday, CHF, coronary artery disease, insulin dependent diabetes presenting emergency department today with concerns of abdominal pain. Daughter present in
room translating for patient. Patient reports that his pain started a few days ago and came and go, and he thought nothing of it. Then, his pain started to get worse acutely this morning, and his pain started become constant. He noticed that the
pain is worse with eating or lying down. Patient also has associated nausea with this but no vomiting. Patient states that he used to have peritoneal dialysis done but denies any other abdominal surgeries, now he receives dialysis in his left AC.
Patient denies any diarrhea or constipation, denies any chest pain. Daughter reports that he was recently discharged from the hospital on 07/02 for sepsis due to pneumonia and an acute heart failure exacerbation. Patient was able to be discharged
off oxygen. Patient denies any flank pain, any burning with urination, any blood in his urine. Patient denies any hematemesis, melena. Patient denies any lower extremity swelling. Patient did receive dialysis yesterday. Patient rates pain 7 out
of 10.
Past History
<Deysi Cloud PA-C - Last Filed: 07/20/23 21:26>
Past History
ED Past Medical History: Other (Hypertension, diabetes, valvular heart disease)
Social History
Tobacco: Non-smoker
Alcohol: None
Family History
Family History: Hypertension
Review of Systems
<Deysi Cloud PA-C - Last Filed: 07/20/23 21:26>
Review of Systems
All Other Systems: ROS reviewed and negative except as documented in HPI and ROS
Phy Exam
<Deysi Cloud PA-C - Last Filed: 07/20/23 21:26>
Physical Exam
Physical Exam:
General: Patient appears uncomfortable secondary to pain, chronically ill-appearing, nontoxic
Skin: Warm and dry, no rashes or lesions
Head: Normocephalic, atraumatic
Eyes: Sclera non-icteric. EOMs intact. PERRLA.
Cardiac: Regular rate and rhythm, no murmurs
Peripheral Vascular: No lower extremity swelling or edema, no lower extremity erythema, 2+ dorsalis pedis pulses bilaterally
Pulm: Tachypnea noted, audible expiratory wheezes heard, rhonchi heard in the lung bases bilaterally
Abdomen: Patient has moderate diffuse tenderness to palpation, no palpable masses
Neuro: CN II-XII intact, no focal neurologic deficits.
Psychiatric: Appropriate mood and affect.
Course
<Deysi Cloud PA-C - Last Filed: 07/20/23 21:26>
Orders/Labs/Results
Orders:
Orders
07/20/23 16:45
Add On- LAB Urgent
Tests Added?: magnesium
07/20/23 16:46
Complete Blood Count/With Diff Urgent
Comprehensive Metabolic Panel Urgent
Lipase Urgent
Magnesium Urgent
Troponin I Urgent
Comment: ADD-ON
Iohexol [Omnipaque] See Protocol PO NOW STA
07/20/23 16:49
CT Abd/pel (oral only)-[facility] Only Urgent
Comment:
Reason For Exam: b/l lower abdominal pain
07/20/23 17:16
Morphine Sulfate 1 mg IV NOW STA
Ondansetron Injectable [Zofran] 4 mg IV NOW STA
07/20/23 17:56
CR Chest - 2 Views Urgent
Comment:
Reason For Exam: shortness of breath
07/20/23 18:08
Electrocardiogram (*1) Urgent
Reason for Study: Abdominal Pain
EKG- Treatment ONCE
07/20/23 18:45
HydrALAZINE [Apresoline] 10 mg IV NOW STA
07/20/23 19:55
Nicardipine 40 mg/200 ml [Cardene] 40 mg in 200 ml IV NOW
Initial dose in mg/hr, then titrate:: 5
Titrate to keep:: SBP 140 - 160 mmHg
Titrate by mg/hr:: 2.5 mg/hr
Frequency of titrations (minutes):: 5-15 minutes
Maximum dose in mg/hr:: 15
Begin to taper infusion when:: Remained at goal for 2hrs
Taper by mg/hr:: 2.5 mg/hr
Frequency of taper (minutes) if patient maintains goal:: 15-30 minutes
Taper to off?: Yes
If infusion off & no longer maintaining goal:: Contact Provider
07/20/23 20:15
Add On- LAB Urgent
Tests Added?: troponin I
07/20/23 20:18
NEPHROLOGY CONSULT Urgent
Consulting Provider: Nichole Haynes
Was physician already notified: Yes
07/20/23 21:20
Add On- LAB Stat
Tests Added?: bnp
Procalcitonin Stat
PCT Algorithmm Indication: Respiratory
Weight As Directed
Frequency: Once
Abnormal Lab Results
07/20/23
16:46
RBC 3.51 L 10^6/uL
(4.70-6.10)
Hgb 10.0 L g/dL
(13.0-18.0)
Hct 32.8 L %
(39.0-52.0)
MCHC 30.5 L g/dL
(33.0-37.0)
RDW 17.7 H %
(11.5-14.5)
MPV 10.9 H fL
(7.4-10.4)
Absolute Lymphs (auto) 1.0 L 10^3/uL
(1.2-3.4)
Lymphocytes % 12.0 L %
(20.5-51.1)
Eosinophils % 6.5 H %
(0-6)
BUN 43 H mg/dl
(9-20)
Creatinine 5.2 H* mg/dL
(0.7-1.3)
Glucose 123 H mg/dl
(70-99)
Alkaline Phosphatase 127 H U/L
(38-126)
Troponin I 0.131 H* ng/ml
07/20/23 16:46
07/20/23 16:46
Vital Signs
Initial and Last Documented VS:
Initial Vital Signs
Temp Pulse Resp BP Pulse Ox
97.7 F 69 16 176/63 98
07/20/23 14:37 07/20/23 14:37 07/20/23 14:37 07/20/23 14:37 07/20/23 14:37
Last Documented Vital Signs
Temp Pulse Resp BP Pulse Ox
97.7 F 69 16 148/46 100
07/20/23 14:37 07/20/23 14:37 07/20/23 14:37 07/20/23 21:00 07/20/23 21:00
<Deshawn Jimenez MD - Last Filed: 07/20/23 21:08>
Orders/Labs/Results
Orders:
Orders
07/20/23 16:45
Add On- LAB Urgent
Tests Added?: magnesium
07/20/23 16:46
Complete Blood Count/With Diff Urgent
Comprehensive Metabolic Panel Urgent
Lipase Urgent
Magnesium Urgent
Troponin I Urgent
Comment: ADD-ON
Iohexol [Omnipaque] See Protocol PO NOW STA
07/20/23 16:49
CT Abd/pel (oral only)-[facility] Only Urgent
Comment:
Reason For Exam: b/l lower abdominal pain
07/20/23 17:16
Morphine Sulfate 1 mg IV NOW STA
Ondansetron Injectable [Zofran] 4 mg IV NOW STA
07/20/23 17:56
CR Chest - 2 Views Urgent
Comment:
Reason For Exam: shortness of breath
07/20/23 18:08
Electrocardiogram (*1) Urgent
Reason for Study: Abdominal Pain
EKG- Treatment ONCE
07/20/23 18:45
HydrALAZINE [Apresoline] 10 mg IV NOW STA
07/20/23 19:55
Nicardipine 40 mg/200 ml [Cardene] 40 mg in 200 ml IV NOW
Initial dose in mg/hr, then titrate:: 5
Titrate to keep:: SBP 140 - 160 mmHg
Titrate by mg/hr:: 2.5 mg/hr
Frequency of titrations (minutes):: 5-15 minutes
Maximum dose in mg/hr:: 15
Begin to taper infusion when:: Remained at goal for 2hrs
Taper by mg/hr:: 2.5 mg/hr
Frequency of taper (minutes) if patient maintains goal:: 15-30 minutes
Taper to off?: Yes
If infusion off & no longer maintaining goal:: Contact Provider
07/20/23 20:15
Add On- LAB Urgent
Tests Added?: troponin I
07/20/23 20:18
NEPHROLOGY CONSULT Urgent
Consulting Provider: Nichole Haynes
Was physician already notified: Yes
07/20/23 21:20
Add On- LAB Stat
Tests Added?: bnp
Procalcitonin Stat
PCT Algorithmm Indication: Respiratory
Weight As Directed
Frequency: Once
Abnormal Lab Results
07/20/23
16:46
RBC 3.51 L 10^6/uL
(4.70-6.10)
Hgb 10.0 L g/dL
(13.0-18.0)
Hct 32.8 L %
(39.0-52.0)
MCHC 30.5 L g/dL
(33.0-37.0)
RDW 17.7 H %
(11.5-14.5)
MPV 10.9 H fL
(7.4-10.4)
Absolute Lymphs (auto) 1.0 L 10^3/uL
(1.2-3.4)
Lymphocytes % 12.0 L %
(20.5-51.1)
Eosinophils % 6.5 H %
(0-6)
BUN 43 H mg/dl
(9-20)
Creatinine 5.2 H* mg/dL
(0.7-1.3)
Glucose 123 H mg/dl
(70-99)
Alkaline Phosphatase 127 H U/L
(38-126)
Troponin I 0.131 H* ng/ml
07/20/23 16:46
07/20/23 16:46
Vital Signs
Initial and Last Documented VS:
Initial Vital Signs
Temp Pulse Resp BP Pulse Ox
97.7 F 69 16 176/63 98
07/20/23 14:37 07/20/23 14:37 07/20/23 14:37 07/20/23 14:37 07/20/23 14:37
Last Documented Vital Signs
Temp Pulse Resp BP Pulse Ox
97.7 F 69 16 148/46 100
07/20/23 14:37 07/20/23 14:37 07/20/23 14:37 07/20/23 21:00 07/20/23 21:00
<Deysi Cloud PA-C - Last Filed: 07/20/23 21:26>
MDM/Problems Addressed
Differential Diagnosis Includes:
Differentials include diverticulitis, gastritis, appendicitis, acute CHF exacerbation, acute mesenteric ischemia, abdominal aortic aneurysm, aortic dissection
MDM/Problems Addressed:
Abdominal pain, hypoxia, tachypnea
Chronic conditions affecting care:
Renal failure on dialysis, diabetes, hypothyroidism, congestive heart failure, cad
Acute Exacerbation and/or Progression of Chronic Illness:
Renal failure on dialysis, diabetes, hypothyroidism, congestive heart failure, cad
<Deysi Cloud PA-C - Last Filed: 07/20/23 21:26>
*Radiology
Radiology exam reviewed: preliminary read by ED provider (Pulmonary edema noted on chest x-ray, no pleural effusion)
*Pulse Oximetry
Patient hypoxic: yes
Data Reviewed
Review of Other/Old Records Reveals: Discharge Summary (Reviewed most recent discharge summary)
Source: patient and records
<Deshawn Jimenez MD - Last Filed: 07/20/23 21:08>
*Critical Care Note
Total Time (30-74mins, 75-104mins- exclusive of procedures): 32
comment:
Critical care statement: A total of 32 minutes of critical care time was provided for this patient. This includes management of unstable vital signs, evaluation of the patient at bedside, frequent reassessment, discussion with
consultants/hospitalist, and review of pertinent medical records. This time was separate from time utilized to perform any aforementioned documented procedures.
<Deysi Cloud PA-C - Last Filed: 07/20/23 21:26>
Patient Management
Escalation/DeEscalation of care consider admission/obs:
This is a 78 y/o male with a PMH of end-stage renal disease on dialysis Saturday, CHF, coronary artery disease, insulin dependent diabetes presenting emergency department today with concerns of abdominal pain. Daughter present in
room translating for patient. Patient reports that his pain started a few days ago and came and go, and he thought nothing of it. Then, his pain started to get worse acutely this morning, and his pain started become constant. Patient also
hypoxic today on presentation, increased work of breathing. Rhonchi heard on exam. While here in emergency department, patient required oxygen. Patient was recently discharged from the hospital at the end of June for sepsis from pneumonia.
According to daughter, patient is never required oxygen for any reason prior to his hospitalization. He Emergency Department, CT scan scan negative for any intra acute abdominal pathology, x-ray does demonstrate findings consistent with pulmonary
edema. Here emergency department, patient has had persistent high blood pressures, with highest being systolically in the 230s. Dose of hydralazine given and pressures persist. Concern for hypertensive crisis considering hypoxia, elevated
troponin, and x-ray findings. Patient will be admitted to hospitalist, nephrology aware, patient seen in conjunction with my attending Dr. Jimenez.
<Deysi Cloud PA-C - Last Filed: 07/20/23 21:26>
Update Note
Update Note:
-Reassessed patient, patient's pain is well-controlled with 1 mg morphine, however patient started to become hypoxic to 85% on room air, now requires 3 L satting 100%, will put in for CXR
-CXR findings noted--interstitial markings seen throughout both lungs, more prominent than previous studies. Considering patient's degree of hypoxia and hx of CHF, current symptoms in light of persistently high BPs concerning for hypertensive crisis
-8:35 pm: updated patient and family, bp noted in room noted to be in the 180s systolically
ED Attending Note
<Deysi Cloud PA-C - Last Filed: 07/20/23 21:26>
-
Portions of this chart may have been created with voice recognition software.� Occasional wrong word or��sound alike� substitutions may have occurred due to the inherent limitations of voice recognition software.
<Deshawn Jimenez MD - Last Filed: 07/20/23 21:08>
ED Attending Note
Patient seen and examined by attending physician: Yes
ED Attending Note:
I have seen and evaluated the patient with a [id number] encounter. I have spoken to the advance practicer provider and involved in the medical history, the physical exam, medical decision making.
Evaluation and management service: agree unless noted differently below.
Results interpretation: agree unless noted differently below.
Focused HPI: 78-year-old male with past medical history as documented notable for CHF and ESRD who presents for evaluation of epigastric pain, shortness of breath. He is on dialysis Saturday/Saturday/Saturday and had a full session yesterday. He
tells me that today he started with pain across his upper abdomen. He says he has some increased shortness of breath. He denies any coughing. He denies any chest pain. He denies any nausea, vomiting. Denies fever. No other complaints.
Physical exam: Awake and alert. Severely hypertensive. Mild tachypnea. Hypoxia requiring 4 L nasal cannula. Otherwise normal vitals. Abdomen soft, minimal tenderness across the upper abdomen. No cardiac rubs, or murmurs. Diminished breath
sounds at the lung bases.
Medical Decision Makin-year-old male presents for evaluation of upper abdominal discomfort and shortness of breath over the past day or 2. Had full dialysis session yesterday. He is severely hypertensive here with a blood pressure greater
than 200 systolic. He is hypoxic requiring 4 L nasal cannula and has mild tachypnea. We sent off labs including a CBC which showed stable anemia, CMP which showed elevated BUN and creatinine but acceptable potassium. His troponin was marginally
elevated to 0.131�suspect likely related to ESRD and severe hypertension. Chest x-ray reviewed by me appears to show some pulmonary edema which I think accounts for his dyspnea and tachypnea; suspect that this is a hypertensive crisis with
pulmonary edema and elevated troponin. Was given IV hydralazine without effect. Started on IV nicardipine for blood pressure control. Case discussed with nephrology will plan for dialysis tomorrow which think is reasonable. Will continue with
aggressive blood pressure control. We did send for a CT abdomen pelvis which was negative for any acute abdominal pathology. Will admit case to hospitalist for continued management.
Discharge Plan
Departure
Patient Disposition: Admit
Date of Disposition: 07/20/23
Time of Disposition: 21:02
Admit to: Telemetry
Presentation/result/management discussed w/ accepting MD/DO: Hospitalist
Patient with high blood pressure during this ER visit?: Yes
Condition: Fair
Discharge Problem:
Hypertensive crisis, Pulmonary edema
Prescriptions:
No Action
bumetanide 2 MG tablet
4 mg PO DAILY
atorvastatin 10 MG tablet
10 mg PO DAILY
nifedipine 20 mg Capsule
20 mg PO BID
lisinopril 20 MG tablet
40 mg PO DAILY@1200
clopidogrel [Plavix] 75 MG tablet
75 mg PO QPM
omeprazole 40 MG capsule,delayed release(DR/EC)
40 mg PO BID
levothyroxine [Euthyrox] 75 MCG tablet
75 mcg PO DAILY
hydralazine 100 MG tablet
50 mg PO TID
insulin glargine [Lantus Solostar U-100 Insulin] 100 unit/mL (3 mL) Insulin Pen
11 unit SC HS
cholecalciferol (vitamin D3) [Vitamin D3] 25 mcg (1,000 unit) Tablet
25 mcg PO DAILY@1200
ondansetron HCl 4 mg Tablet
4 mg PO Q8HPRN PRN (Reason: nausea)
isosorbide mononitrate 30 mg Tablet Extended Release 24 Hr
30 mg PO BID
clonidine HCl 0.3 mg Tablet
0.3 mg PO BID
calcium carbonate [Tums] 200 mg calcium (500 mg) Tablet,Chewable
400 mg PO BID
[place] Caps 1 mg Capsule
1 cap PO DAILY@1200
insulin lispro 100 unit/mL Insulin Pen
14 sliding scale dose SC AC
lactulose [Enulose] 10 gram/15 mL Solution
22.5 g PO DAILYPRN PRN (Reason: CONSTIPATION)
guaifenesin [Mucinex] 600 mg Tablet Extended Release 12hr
600 mg PO BID
Referrals:
Ricci Garber MD [Family Provider] -
Interventions
Interventions:
*Risk Screen - Suicide Last Done: 07/20/23 16:23
*General Assessment Last Done: 07/20/23 16:23
*Neglect/Abuse Screening Last Done: 07/20/23 16:23
ED- Fall Risk Assessment Last Done: 07/20/23 16:23
*ED COVID-19 Vaccine History Last Done: 07/20/23 14:37
CE-Ctuyuq-Oqcsrfmbzs Assessment Last Done: 07/20/23 16:23
Discharge Date and Time
Print Language: TELUGU
[2023-07-20 16:51] LABS: % Basophils 0.6 % (0-2); % Eosinophils 6.5 % (0-6); % Immature Granulocytes 0.4 % (0-0.5); % Monocytes 7.2 % (1.7-9.3); % Neutrophils 73.3 % (42.2-75.2); Absolute Basophils 0.1 10^3/uL (0-0.2); Absolute Eosinophils 0.6 10^3/uL (0-0.7); Absolute Monocytes 0.6 10^3/uL (0.1-0.6); Absolute Neutrophils 6.2 10^3/uL (1.4-6.5); Hematocrit 32.8 % (39.0-52.0); Mean Corp Hgb Conc. 30.5 g/dL (33.0-37.0); Mean Corpuscular Hgb 28.5 pg (27.0-31.0); Mean Corpuscular Volume 93.4 fL (80.0-94.0); Mean Platelet Volume 10.9 fL (7.4-10.4); Nucleated Red Blood Cells % 0 % (-); Platelet Count 164 10^3/uL (130-400); Red Blood Cell Count 3.51 10^6/uL (4.70-6.10); Red Cell Dist. Width 17.7 % (11.5-14.5); White Blood Cell Count 8.4 10^3/uL (4.8-10.8)
[2023-07-20 17:10] LABS: ALT (SGPT) 27 U/L (0-50); AST (SGOT) 39 U/L (17-59); Albumin 4.2 g/dl (3.5-5.0); Alkaline Phosphatase 127 U/L (38-126); Blood Urea Nitrogen 43 mg/dl (9-20); Calcium 8.7 mg/dl (8.4-10.2); Carbon Dioxide 27 mmol/L (22-30); Chloride 99 mmol/L (98-107); Glucose 123 mg/dl (70-99); Lipase 113 U/L (23-300); Potassium 4.7 mmol/L (3.5-5.1); Sodium 140 mmol/L (135-145); Total Bilirubin 1.2 mg/dl (0.2-1.3); Total Protein 7.6 g/dl (6.3-8.2); eGFR 10.65
[2023-07-20] MEDS: OMNIPAQUE 50 ML PO (17:14)
[2023-07-20] MEDS: MORPHINE SULFATE 1 MG IV (17:19)
[2023-07-20] MEDS: ZOFRAN 4 MG IV (17:20)
[2023-07-20] MEDS: APRESOLINE 10 MG IV (18:57)
[2023-07-20 20:14] LABS: Magnesium 2.1 mg/dl (1.6-2.3)
[2023-07-20] MEDS: CARDENE 200 IV (20:31)
[2023-07-20 20:58] LABS: Troponin I 0.131 ng/ml
--- NOTE | 2023-07-20 21:03 | HPS.HSE ---
Family Physician
-
Family Physician: Ricci Garber
Chief Complaint
-
abdominal pain
History of Present Illness
78 y/o male with a PMH of end-stage renal disease on dialysis Saturday, CHF, coronary artery disease, insulin dependent diabetes presenting emergency department today with concerns of abdominal pain.he was complaining of epigastric
pain for past few days. he was taking gas x as well as Tums with no relief in his symptoms. today it got worse which prompted him to come to ER. stated chronic Nausea. denied vomiting or diarrhea. he was sob with pain. denied, BRASWELL dizzy or syncopal
episode. denied fever, chills. denied dysuria or hematuria. denied weight gain or edema. Daughter reports that he was recently discharged from the hospital on 07/02 for sepsis due to pneumonia and an acute heart failure exacerbation.
patient is 88 on RA. requiring 3l of oxygen. he was also noted hypertensive urgency. on nicardpine drip
Medical History
Past Medical History
Past Medical History: Reports Other
Additional Past Medical History:
End-stage renal disease
hypothyroid
CAD
CHF
hypertension
HLD
type 2 Dm
Past Surgical History: Reports Other
Additional Past Surgical History:
cataract sugary
Social History
Tobacco: Non-smoker
Alcohol: None
Drug: None
Living: With Family
Family History
Family History: Not pertinent
Allergies / Home Medications
Allergies reflects when Allergies were last updated in [facility].
Home Medications with original date entered in [facility]
Allergy/Medication List:
Allergies
Allergy/AdvReac Type Severity Reaction Status Date / Time
No Known Allergies Allergy Verified 07/20/23 14:39
Home Medications
atorvastatin 10 mg tablet 10 mg PO DAILY High Cholesterol 05/09/21
bumetanide 2 mg tablet 4 mg PO DAILY Fluid Retention/Swelling 05/09/21
clopidogrel 75 mg tablet (Plavix) 75 mg PO QPM Blood Clot Prevention/Tx 05/09/21
hydralazine 100 mg tablet 50 mg PO TID Blood Pressure 05/09/21
insulin glargine 100 unit/mL (3 mL) subcutaneous pen (Lantus Solostar U-100 Insulin) 11 unit SC HS Diabetes 05/09/21
levothyroxine 75 mcg tablet (Euthyrox) 75 mcg PO DAILY Thyroid 05/09/21
lisinopril 20 mg tablet 40 mg PO DAILY@1200 Blood Pressure 05/09/21
nifedipine 20 mg capsule 20 mg PO BID Blood Pressure 05/09/21
omeprazole 40 mg capsule,delayed release 40 mg PO BID Gastrointestinal Issue 05/09/21
cholecalciferol (vitamin D3) 25 mcg (1,000 unit) tablet (Vitamin D3) 25 mcg PO DAILY@1200 Supplement 08/13/22
isosorbide mononitrate 30 mg tablet,extended release 24 hr 30 mg PO BID Blood Pressure 06/30/23
ondansetron HCl 4 mg tablet 4 mg PO Q8HPRN PRN nausea 06/30/23
calcium carbonate (Tums) 400 mg PO BID 07/20/23
clonidine HCl 0.3 mg tablet 0.3 mg PO BID 07/20/23
guaifenesin 600 mg tablet, extended release 12 hr (Mucinex) 600 mg PO BID 07/20/23
insulin lispro 100 unit/mL subcutaneous pen 14 sliding scale dose SC AC 07/20/23
lactulose 10 gram/15 mL oral solution (Enulose) 22.5 g PO DAILYPRN PRN CONSTIPATION 07/20/23
vitamin B complex and vitamin C no.20-folic acid 1 mg capsule (Julio C Caps) 1 cap PO DAILY@1200 07/20/23
Review of Systems
-
Constitutional: Reports No Symptoms
EENT: Reports No Symptoms
Respiratory: Reports Trouble Breathing
Cardiac: Reports No Symptoms
Abdomen/GI: Reports Abdominal Pain and Nausea
: Reports No Symptoms
Musculoskeletal: Reports No Symptoms
Skin: Reports No Symptoms
Neurological: Reports No Symptoms
Endocrine: Reports No Symptoms
Hematologic/Lymphatic: Reports No Symptoms
Psych: Reports No Symptoms
Physical Exam
Vital Signs
Vital Signs
Temp Pulse Resp BP Pulse Ox
97.7 F 69 16 181/63 100
07/20/23 14:37 07/20/23 14:37 07/20/23 14:37 07/20/23 20:00 07/20/23 20:15
Physical Exam
General: Well Developed, Well Nourished and No Apparent Distress
HEENT: NormoCephalic, Moist mucous membranes and Atraumatic
Respiratory: Clear
Cardiac: S1/S2 and Regular Rhythm; No Murmur or Rub
GI: Soft, Non Tender, Non Distended and Normal Bowel Sounds; No Organomegaly
Rectal: Deferred by Provider
Musculoskeletal: No Clubbing, No Cyanosis and No Edema
Skin: No Rash
Neuro: AO x 3 and Nonfocal/grossly intact
Psych: Calm
Laboratory Results
-
07/20/23 16:46
07/20/23 16:46
Laboratory Results
Total Bilirubin 1.2 mg/dl (0.2-1.3) 07/20/23 16:46
AST 39 U/L (17-59) 07/20/23 16:46
ALT 27 U/L (0-50) 07/20/23 16:46
Alkaline Phosphatase 127 U/L (38-126) H 07/20/23 16:46
Troponin I 0.131 ng/ml H* 07/20/23 16:46
Lipase 113 U/L (23-300) 07/20/23 16:46
Data Reviewed
-
Diagnostic Radiology: Report Reviewed by me
Lab Data: Labs Reviewed by me
Impression/Plan
-
#abdominal pain unclear cause
-Ct abdomen pelvis negative
-ctm
-clear liquid diet, advance as tolerated.
#acute hypoxic respiratory failure likely from CHF exacerbation
-CXR There is mild diffuse coarsening of the interstitial markings throughout both lungs, more prominent than on the prior studies such as may be seen with bronchiolitis.
-Bumex continued
-obtain BNP
-88 on RA< 100, 3l
-strict I & O
-daily weight
-wean oxygen as tolerated
-continue supplemental oxygen to keep sat >92
#hypertensive urgency
-BP elevated in ER
-nicardipine continued
-clonidine continued
-hydralazine continued
-isosorbide continued
-lisinopril and nifedipine continued
-continue BP meds with hold parameter.
#GERD
-PPI continued
#CAD
-Plavix continued
#anemia of chronic disease
-hgb 10.0
-no active bleeding
-ctm
#elevated trop likely demand ischemia
-trop 0.131
-trend trop
-no c/o chest pain
#HLD
-statin continued
#DM-II
-glargine 11u at hs
-sliding scale
-hold lispro
#hypothyroidism
-levothyroxine continued
DVT Prophylaxis: Subcut Heparin
Code Status: Full
--- NOTE | 2023-07-20 21:25 | W.PN.UPDATE ---
Update Note
Progress Note Update
HPI
78M HX significant for ESRD on CHD( MWF) CAD, IDDM, HTN seen at ER for evaluation of SoB and abdominal pain.
Current abdominal pain
- acute onset and gradually getting worse for last few days
- pain is worse with eating or lying down.
- hemodynamically stable
- POS nausea. No vomiting
- no diarrhea or constipation
- no lank pain, any burning with urination
Note HTN emergency
- Improved BP on Nicardipine gtt
- Currently BP 168/58
SoB
- chronic
- Not on home O2
- denied wt gain by daughter
- No new edema
- Denied CP
PMHX
ESRD on HD (MWF)
ASCVD (Carotid Stenosis, CAD, CVA)
Hypertension
DM-II
Hypothyroidism
Nephrolithiasis
PSHX
PD Catheter Placement / Removal
LUE AVG
SHx
Tobacco: Non-smoker
Alcohol: None
Drug: None
Living: With Family
Family History
Family History: Not pertinent
Allergies / Home Medications
Allergies
Allergy/AdvReac Type Severity Reaction Status Date / Time
No Known Allergies Allergy Verified 07/20/23 14:39
Home Medications
atorvastatin 10 mg tablet 10 mg PO DAILY High Cholesterol 05/09/21
bumetanide 2 mg tablet 4 mg PO DAILY Fluid Retention/Swelling 05/09/21
clopidogrel 75 mg tablet (Plavix) 75 mg PO QPM Blood Clot Prevention/Tx 05/09/21
hydralazine 100 mg tablet 50 mg PO TID Blood Pressure 05/09/21
insulin glargine 100 unit/mL (3 mL) subcutaneous pen (Lantus Solostar U-100 Insulin) 11 unit SC HS Diabetes 05/09/21
levothyroxine 75 mcg tablet (Euthyrox) 75 mcg PO DAILY Thyroid 05/09/21
lisinopril 20 mg tablet 40 mg PO DAILY@1200 Blood Pressure 05/09/21
nifedipine 20 mg capsule 20 mg PO BID Blood Pressure 05/09/21
omeprazole 40 mg capsule,delayed release 40 mg PO BID Gastrointestinal Issue 05/09/21
cholecalciferol (vitamin D3) 25 mcg (1,000 unit) tablet (Vitamin D3) 25 mcg PO DAILY@1200 Supplement 08/13/22
isosorbide mononitrate 30 mg tablet,extended release 24 hr 30 mg PO BID Blood Pressure 06/30/23
ondansetron HCl 4 mg tablet 4 mg PO Q8HPRN PRN nausea 06/30/23
calcium carbonate (Tums) 400 mg PO BID 07/20/23
clonidine HCl 0.3 mg tablet 0.3 mg PO BID 07/20/23
guaifenesin 600 mg tablet, extended release 12 hr (Mucinex) 600 mg PO BID 07/20/23
insulin lispro 100 unit/mL subcutaneous pen 14 sliding scale dose SC AC 07/20/23
lactulose 10 gram/15 mL oral solution (Enulose) 22.5 g PO DAILYPRN PRN CONSTIPATION 07/20/23
vitamin B complex and vitamin C no.20-folic acid 1 mg capsule ([place] Caps) 1 cap PO DAILY@1200 07/20/23
Reviewed VS:231/80 ---> 180/63 HR 69 RR16 POx 100 on 3L NC O2 afebrile
Wt : pending for this admission , was 76.7 kg on 07/03/23
PE
Gen: Ill-appearing, sleeping
HEENT: dry OM , poor dentition
Neck: supple
Lungs:
Cor: S1/S2, Regular Rhythm and Murmur (II/ RISHABH)
Abdomen: Soft, Normal Bowel Sounds and no tenderness. Softly distended. Pos BS
[employer]: sleeping , NFND
MS:No Clubbing, No Cyanosis and No Edema
Psych: No Anxious or Depressed
Data
Nl WCC
Hgb 10
BUN 43 Cr 5.2 eGFR 10.6
Nl LFTs
TPNI 0.131 - baseline range id 0.082 - 0.182
07/20/23 CXR
mild diffuse coarsening of the interstitial markings throughout both lungs, more prominent than on the prior studies such as may be seen with bronchiolitis
07/20/23 CT Abd/pel (oral only)
There is no evidence of acute pathology.
There is mild-moderate thinning of the renal cortex bilaterally
There are multiple bilateral renal cysts
08/13/22 TTE
LVEF 55-60
Mild TR
Est PASP 35-40
Last hospitalist admission: 06/30 - 07/05/23
Principal Discharge diagnosis : Sepsis due to pneumonia, acute on chronic diastolic congestive heart failure exacerbation
Chronic Discharge diagnosis : End-stage renal disease on hemodialysis, atherosclerotic cardiovascular disease, essential hypertension, type 2 diabetes mellitus, nonischemic myocardial injury
ASSESSMENT & PLAN
HTN emergency
- Somewhat improved BAR in response to Nicardipine gtt
- cont Nicardipine gtt
- cont. Bumex
- cont outpatient med regimen with hold index for SBP < 120, DBP < 80
Acute abdominal pain wit distension - improved with better BP control
Benign exam
Unremarkable LFTs and Lipase
Unremarkable CT AP
- clear diet
- Serial exam
- f/u CMP
Acute hypoxic RF requiring NC O2 support
HX Chronic HFpEF - suspect decompensation due to HTN emergency
ESRD on HD: last HD was on 07/19/23
- Has abdominal distention which is typically where he 'holds' his fluid build up.
- control BP with Nicardipine
- cont Bumex
- f/u admission weight
- Follow daily weights, I/Os, etc.
- Nephrology consult for HD needs in the AM.
Chronic TPNI elevation due to ESRD c/w Non-Ischemic Myocardial Injury
ASCVD HX
- Stable. Patient denies any chest pain / palpitations.
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
- Trend TPNI till peak
IRDMT2
- Stable. Continue basal : bolus insulin regimen.
- add low SSI as needed.
DVT Px: SQH
Code: Full code
ICU
[2023-07-20 21:46] LABS: NT-proBNP 12200 pg/ml
--- NOTE | 2023-07-20 22:40 | PTCARENOTE ---
pt admit to ICU, aaox3, SR HR 70s, Sat 100% on 3LNC, denies pain, RA IV x 2-Cardene gtt infusing per work list. LUE AV fistula WNL. CHG cloths, upper/lower denture care, POC discussed, call anthony with pt, bed alarm on.
[2023-07-20 23:08] LABS: Glucose - Point of Care 185 mg/dl (70-99)
[2023-07-20 23:18] LABS: APTT 28.9 Sec (23.4-35.0); INR 1.15; PT 14.6 Sec (11.4-14.6)
[2023-07-20 23:18] LABS: Procalcitonin 0.58 ng/ml (0.0-0.25)
[2023-07-20] MEDS: APRESOLINE PO (23:38)
[2023-07-20] MEDS: LANTUS 0.110000000000000001 UNITS SC (23:38)
[2023-07-20 23:41] LABS: Troponin I 0.153 ng/ml
[2023-07-21] VITALS (65 sets, daily range): BP systolic 107–179; BP diastolic 46–107
[2023-07-21] MEDS: CARDENE 200 IV (03:16)
[2023-07-21 03:41] LABS: Hematocrit 26.4 % (39.0-52.0); Hemoglobin 8.4 g/dL (13.0-18.0); Mean Corp Hgb Conc. 31.8 g/dL (33.0-37.0); Mean Corpuscular Hgb 29.6 pg (27.0-31.0); Mean Platelet Volume 11.5 fL (7.4-10.4); Platelet Count 154 10^3/uL (130-400); Red Blood Cell Count 2.84 10^6/uL (4.70-6.10); Red Cell Dist. Width 17.6 % (11.5-14.5); White Blood Cell Count 9.2 10^3/uL (4.8-10.8)
[2023-07-21 04:13] LABS: Troponin I 0.243 ng/ml
[2023-07-21 04:54] LABS: Blood Urea Nitrogen 49 mg/dl (9-20); Carbon Dioxide 25 mmol/L (22-30); Chloride 99 mmol/L (98-107); Glucose 141 mg/dl (70-99); Potassium 4.8 mmol/L (3.5-5.1); Sodium 132 mmol/L (135-145); eGFR 8.97
[2023-07-21] MEDS: SYNTHROID 75 MCG PO (06:04)
[2023-07-21] MEDS: CATAPRES 0.299999999999999989 MG PO ×2 (07:09→20:28)
[2023-07-21] MEDS: LIPITOR 10 MG PO (07:10)
[2023-07-21] MEDS: PROTONIX 40 MG PO ×2 (07:10→20:28)
[2023-07-21] MEDS: ADALAT 20 MG PO ×2 (07:10→20:28)
[2023-07-21] MEDS: IMDUR (EXTENDED RELEASE) 30 MG PO ×2 (07:10→20:29)
[2023-07-21] MEDS: BUMEX 4 MG PO (07:10)
[2023-07-21] MEDS: TYLENOL 650 MG PO (07:10)
[2023-07-21] MEDS: HEPARIN 5000 UNITS SC ×2 (07:11→20:29)
[2023-07-21] MEDS: APRESOLINE 50 MG PO ×2 (07:11→15:08)
[2023-07-21] MEDS: NOVOLOG FLEXPEN-LOW RESISTANCE SC (07:18)
[2023-07-21 07:28] LABS: Glucose - Point of Care 138 mg/dl (70-99)
--- NOTE | 2023-07-21 07:38 | PTCARENOTE ---
Addendum entered by Art Talley RN 07/21/23 09:15:
SBP < 140; Cardene gtt off @ 08:05.
Original Note:
Pt received in bed @ 0700. AAOx3. 3 pain described in left upper quadrant of abdomen. Non-tender. PRN Tylenol 650mg PO provided. Lungs diminished. Attempted to wean O2; SaO2 92% on room air. 2L reapplied and SaO2 regained to 98%. Sinus rhythm on
skilled nursing facility counselor. HR 60s. Trace pitting LE edema. Peripheral pulses palpable. LUE AV fistula with (+) bruit/(+) thrill. Abdomen round, distended. Bowel sounds (+). Clear liquid diet tolerated. Oliguric. No void observed. Dialysis nurse at bedside
preparing for ultrafiltration. Cardene gtt infusing @ 2.5 mg/hr with goal SBP of 140-160.
--- NOTE | 2023-07-21 07:50 | W.PN.HOSP.TC ---
Today's Communication/Plan
-
see bold
Assessment / Plan
Assessment / Plan
Gen: NAD, Awake and alert
Eyes: EOMI, PERRLA, no scleral icterus.
Neck: supple.
CV: RRR, +S1/S2, no m/r/g.
Resp: CTAB, no rales, wheezes, or rhonchi.
Abd: +BS, soft, NT, ND
Skin: No rashes.
Neuro: CN 2-12 intact, non-focal.
Psych: Normal mood and affect.
CT A/P: No evidence of acute pathology.
CXR: There is mild diffuse coarsening of the interstitial markings throughout both lungs, more prominent than on the prior studies such as may be seen with bronchiolitis.
Acute hypoxic respiratory insufficiency due to acute on chronic HFpEF:
-CXR above
-Bumex continued
-daily wts, I/Os
-volume removal via HD
Hypertensive urgency:
-was on Nicardipine gtt, now off
-cont Imdur/Lisinopril/Nifedipine/Hydralazine/Clonidine
-may need to increase hydralazine but no changes in BP meds today as per discussion with renal
Other problems:
Hyponatremia, mild
ESRD: cont HD, renal c/s
Abdominal pain: CT A/P NEG, etiology unclear
GERD: cont Protonix
CAD: cont Plavix/statin
Elevated trop likely acute nonischemic myocardial injury and ESRD
HLD: cont statin
DM2: cont Lantus/SSI/accuchecks
Anemia of chronic disease
Hypothyroidism: Levoxyl
FULL/Heparin
Total time spent on today's encounter was 50 minutes which included time spent in counseling the patient/family regarding diagnosis and treatment plan as listed above, goals of care, and symptom management. Case was discussed with nursing staff,
specialists, and care coordinators/case management. All labs and imaging personally reviewed by me. Remainder the time spent in detailed review of previous records, lab data, imaging, and other medical provider documentation.
Anticipated Discharge: > 48 hours
Subjective/Interval History
-
Date of Service: July 21, 2023
No new complaints.
Objective Data
-
Labs:
Laboratory Results
07/20/23 07/21/23 07/21/23
22:57 03:15 04:24
WBC 9.2
Hgb 8.4 L
Hct 26.4 L
Plt Count 154
PT 14.6
INR 1.15
APTT 28.9
Sodium Cancelled 132 L D
Potassium Cancelled 4.8
Chloride Cancelled 99
Carbon Dioxide Cancelled 25
BUN Cancelled 49 H
Creatinine Cancelled 6.0 H*
Glucose Cancelled 141 H
Calcium Cancelled 8.0 L
Vital Signs:
Vital Signs
Temp Pulse Resp BP Pulse Ox
98.0 F 64 17 164/61 96
07/21/23 03:10 07/21/23 06:45 07/21/23 06:45 07/21/23 06:45 07/21/23 07:24
I&O
07/20/23 07/21/23 07/22/23
06:59 06:59 06:59
Intake Total 175.0 / 175.0
Balance 175.0 / 175.0
[2023-07-21] MEDS: HEPARIN 500 UNITS IV ×2 (08:10→09:10)
--- NOTE | 2023-07-21 09:06 | CON.INTV ---
Consultation
Consultation Request
Date/Time Consultation Requested: 07/20/2023 - 2099
Date/Time Consultation Performed: 07/21/2023 - 856
Requesting Provider: GENOVEVA Mckeon
Performing Provider: Can Hernandez MD
Reason for Consultation: HTN-Crisis on Cardene gtt
Medical History
-
Chief Complaint: Abdominal pain
History of Present Illness:
78-year-old male non-smoker with past medical history ESRD on HD MWF, hypothyroidism, CAD, CHF and DM type II who presents with abdominal pain. He was having upper abdominal pain for few days and was taking simethicone + Tums with no relief.
Symptoms worsened so he came to the ER, denied vomiting, diarrhea but he does have nausea which is chronic for him. In the ER BP was initially 176/63 and it shawna to 219/62. He was saturating 98% on room air, pulse rate 69, respiratory rate 16 and
he was afebrile to 97.7 �F. Labs showed serum bicarbonate level of 27, creatinine 5.2, initial troponin 0.131, and proBNP 12,200 (prior was 5660 on 06/30/2023). Imaging with CT A/P with oral contrast was performed showing small bilateral pleural
effusions, multiple bilateral renal cysts and no intra-abdominal acute pathology to explain his symptoms.
When I saw the patient he was sitting in chair in no acute distress. He had his HD session this morning. Per the daughter, present at bedside (Romina), the patient has not missed any HD sessions. He has been dealing with hypertension which has
been in the 170�180s over the last 1 month. He currently feels better, saying his abdominal pain is improved. He currently denies any chest pain, headache, shortness of breath, fevers or chills. He is on room air breathing comfortably with SpO2
95%. Heart rate 61 and BP 153/58.
PMHx: ESRD on HD MWF, hypothyroidism, CAD, CHF, hypertension, DM type II, hyperlipidemia
PSHx: Cataract surgery
Past Medical History
Past Medical History: Other (Above as per HPI)
Past Surgical History: Other (Above as per HPI)
Social History
Tobacco: Non-smoker
Alcohol: None
Drug: None
Living: With Family
Family History
Family History: Reviewed & Not Pertinent
Allergies / Home Medications
Allergies
Allergy/AdvReac Type Severity Reaction Status Date / Time
No Known Allergies Allergy Verified 07/20/23 14:39
Home Medications
�Medication �Instructions �Recorded �Confirmed �Last Taken �Type
atorvastatin 10 mg tablet 10 mg PO DAILY High Cholesterol 05/09/21 07/20/23 07/20/23 History
bumetanide 2 mg tablet 4 mg PO DAILY Fluid 05/09/21 07/20/23 07/20/23 History
Retention/Swelling
clopidogrel 75 mg tablet (Plavix) 75 mg PO QPM Blood Clot 05/09/21 07/20/23 07/19/23 History
Prevention/Tx
hydralazine 100 mg tablet 50 mg PO TID Blood Pressure 05/09/21 07/20/23 07/20/23 History
insulin glargine 100 unit/mL (3 11 unit SC HS Diabetes 05/09/21 07/20/23 08/12/22 History
mL) subcutaneous pen (Lantus
Solostar U-100 Insulin)
levothyroxine 75 mcg tablet 75 mcg PO DAILY Thyroid 05/09/21 07/20/23 07/20/23 History
(Euthyrox)
lisinopril 20 mg tablet 40 mg PO DAILY@1200 Blood Pressure 05/09/21 07/20/23 07/20/23 History
nifedipine 20 mg capsule 20 mg PO BID Blood Pressure 05/09/21 07/20/23 07/20/23 History
omeprazole 40 mg capsule,delayed 40 mg PO BID Gastrointestinal Issue 05/09/21 07/20/23 07/20/23 History
release
cholecalciferol (vitamin D3) 25 25 mcg PO DAILY@1200 Supplement 08/13/22 07/20/23 07/20/23 History
mcg (1,000 unit) tablet (Vitamin
D3)
isosorbide mononitrate 30 mg 30 mg PO BID Blood Pressure 06/30/23 07/20/23 07/20/23 History
tablet,extended release 24 hr
ondansetron HCl 4 mg tablet 4 mg PO Q8HPRN PRN nausea 06/30/23 07/20/23 Unknown History
calcium carbonate (Tums) 400 mg PO BID Supplement 07/20/23 07/20/23 07/20/23 History
clonidine HCl 0.3 mg tablet 0.3 mg PO BID Blood Pressure 07/20/23 07/20/23 07/20/23 History
guaifenesin 600 mg tablet, 600 mg PO BID Congestion 07/20/23 07/20/23 07/20/23 History
extended release 12 hr (Mucinex)
insulin lispro 100 unit/mL 14 sliding scale dose SC AC 07/20/23 07/20/23 Unknown History
subcutaneous pen Diabetes
lactulose 10 gram/15 mL oral 22.5 g PO DAILYPRN PRN CONSTIPATION 07/20/23 07/20/23 Unknown History
solution (Enulose)
vitamin B complex and vitamin C 1 cap PO DAILY@1200 Supplement 07/20/23 07/20/23 07/20/23 History
no.20-folic acid 1 mg capsule
(Julio C Caps)
Review of Systems
-
History Source: Patient
All other systems: Negative unless noted
Vitals / Labs / Diagnostic Testing
Vital Signs
Temp Pulse Resp BP Pulse Ox
98.1 F 52 11 130/50 97
07/21/23 08:02 07/21/23 09:15 07/21/23 09:15 07/21/23 09:15 07/21/23 09:15
Lab Data
07/21/23 03:15
07/21/23 04:24
Laboratory Results
07/20/23
22:57
PT 14.6
INR 1.15
APTT 28.9
Diagnostic Testing:
Physical Exam
-
HEENT: Normocephalic and Anicteric
Cardiovascular: S1/S2 and Peripheral Edema (Negative)
Respiratory: Wheeze (Negative), Rales (Negative) and Rhonchi (Negative)
GI: Soft, Distended, Non Tender and Normal Bowel Sounds
Neurology: Awake and Alert
Skin: Warm and Dry
General: Comfortable and Fever (Negative)
Assessment
-
Assessment: 78-year-old male non-smoker with past medical history ESRD on HD MWF, hypothyroidism, CAD, CHF and DM type II who presents with abdominal pain. He was having upper abdominal pain for few days and was taking simethicone + Tums with no
relief. Symptoms worsened so he came to the ER, denied vomiting, diarrhea but he does have nausea which is chronic for him. In the ER BP was initially 176/63 and it shawna to 219/62. He was saturating 98% on room air, pulse rate 69, respiratory
rate 16 and he was afebrile to 97.7 �F. Labs showed serum bicarbonate level of 27, creatinine 5.2, initial troponin 0.131, and proBNP 12,200 (prior was 5660 on 06/30/2023). Imaging with CT A/P with oral contrast was performed showing small
bilateral pleural effusions, multiple bilateral renal cysts and no intra-abdominal acute pathology to explain his symptoms.
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
Impression:
#Hypertensive crisis requiring nicardipine drip - now off drip and receiving HD in unit
#Acute on chronic anemia (baseline Hb 9.5-11)
#Abdominal pain
#Mild hyponatremia
#Elevated troponin likely due to type II MD with demand ischemia
Plan:
- Patient has successfully been weaned off Cardene drip since 8 AM today
- He has received HD session this morning in the ICU
- Lower SBP by 25% in the first 24 hrs with goal SBP 150-170mmHg; then after that would lower SBP to goal <140
- Maintain MAP>65
- Resume HD as per nephrology
- pain control
- Anti-emetics prn (monitor QTc - 484ms via EKG from 07/20/2023)
- Continue trending cTnI level until begins to downtrend
- Maintain SpO2 >90-94%
- Replete electrolytes with K>4, Mg>2
- Maintain euglycemia with goal BG 140-180
- prn nebulized bronchodilators
- Incentive spirometer
- DVT ppx
Patient is stable for downgrade out of ICU to IMU. Director Of Product Management/Pulmonary service will now sign off. Thank you for allowing us to be involved in the care of this patient. Please reconsult if there are any additional questions/concerns, or if
patient's respiratory status deteriorates.
Total time spent today was 75 minutes for this encounter. Time includes reviewing laboratory test/imaging results, reviewing pertinent medical records, obtaining and reviewing medical history, performing an appropriate exam, ordering medications,
tests and procedures. Time also includes documentation of this encounter, coordinating patient care and communicating with other healthcare professionals. Total time does not include separately billed tests performed on this date of service.
Data:
CT Abd/Pelvis with PO contrast 07-20-2023:
There is no evidence of acute pathology.
There is mild-moderate thinning of the renal cortex bilaterally
There are multiple bilateral renal cysts
--- NOTE | 2023-07-21 09:37 | W.CON.NEPH ---
Consultation
-
Date/Time Consultation Requested: 07/21/232029
Date/Time Consultation Performed: 07/21/23 1015
Requesting Provider: Manny Dejesus
Performing Provider: Nichole Rider
Reason for Consultation: ESRD
Medical History
-
Chief Complaint: Abd pain, sob
History of Present Illness:
78 y/o male with a PMH of end-stage renal disease for 5yrs on dialysis Saturday [facility], Left UE AVG, HTN on multi drug regimen on hydralazine, lisinopril, nifedipine, clonidine, CHF on bumex, coronary artery disease on plavix,
imdur, statin, insulin dependent diabetes presenting emergency department last night with concerns of abdominal pain.he was complaining of epigastric pain for past few days. he was taking gas x as well as Tums with no relief in his symptoms. stated
chronic Nausea. denied vomiting or diarrhea. he was sob with pain. denied, BRASWELL dizzy or syncopal episode. denied fever, chills. denied dysuria or hematuria. denied weight gain or edema. He recently discharged from the [facility] [place] on 07/02 for
sepsis due to pneumonia and an acute heart failure exacerbation. His last HD was on 2days and had no issues.
On arrival patient is 88 on RA. requiring 3l of oxygen. he was also noted hypertensive urgency. started on nicardpine drip.
Per daughter his symp abd pain, nausea with high BPs are going on for 1month. He is not eating well at home.
Past Medical History
ESRD, anemia, coronary artery disease, diabetes mellitus type 2, carotid stenosis, hypothyroidism, hypertension
Past Surgical History: Other (AVG, catarect surg)
Social History
Tobacco: Non-Smoker
Alcohol: None
Personal:
Living: With Family
Employment: Not Employed
Family History
Family History: Not Pertinent
Allergies / Home Medications
Allergy/AdvReac Type Severity Reaction Status Date / Time
No Known Allergies Allergy Verified 07/20/23 14:39
�Medication �Instructions �Recorded �Confirmed �Type
atorvastatin 10 mg tablet 10 mg PO DAILY High Cholesterol 05/09/21 07/20/23 History
bumetanide 2 mg tablet 4 mg PO DAILY Fluid 05/09/21 07/20/23 History
Retention/Swelling
clopidogrel 75 mg tablet (Plavix) 75 mg PO QPM Blood Clot 05/09/21 07/20/23 History
Prevention/Tx
hydralazine 100 mg tablet 50 mg PO TID Blood Pressure 05/09/21 07/20/23 History
insulin glargine 100 unit/mL (3 11 unit SC HS Diabetes 05/09/21 07/20/23 History
mL) subcutaneous pen (Lantus
Solostar U-100 Insulin)
levothyroxine 75 mcg tablet 75 mcg PO DAILY Thyroid 05/09/21 07/20/23 History
(Euthyrox)
lisinopril 20 mg tablet 40 mg PO DAILY@1200 Blood Pressure 05/09/21 07/20/23 History
nifedipine 20 mg capsule 20 mg PO BID Blood Pressure 05/09/21 07/20/23 History
omeprazole 40 mg capsule,delayed 40 mg PO BID Gastrointestinal Issue 05/09/21 07/20/23 History
release
cholecalciferol (vitamin D3) 25 25 mcg PO DAILY@1200 Supplement 08/13/22 07/20/23 History
mcg (1,000 unit) tablet (Vitamin
D3)
isosorbide mononitrate 30 mg 30 mg PO BID Blood Pressure 06/30/23 07/20/23 History
tablet,extended release 24 hr
ondansetron HCl 4 mg tablet 4 mg PO Q8HPRN PRN nausea 06/30/23 07/20/23 History
calcium carbonate (Tums) 400 mg PO BID Supplement 07/20/23 07/20/23 History
clonidine HCl 0.3 mg tablet 0.3 mg PO BID Blood Pressure 07/20/23 07/20/23 History
guaifenesin 600 mg tablet, 600 mg PO BID Congestion 07/20/23 07/20/23 History
extended release 12 hr (Mucinex)
insulin lispro 100 unit/mL 14 sliding scale dose SC AC 07/20/23 07/20/23 History
subcutaneous pen Diabetes
lactulose 10 gram/15 mL oral 22.5 g PO DAILYPRN PRN CONSTIPATION 07/20/23 07/20/23 History
solution (Enulose)
vitamin B complex and vitamin C 1 cap PO DAILY@1200 Supplement 07/20/23 07/20/23 History
no.20-folic acid 1 mg capsule
([place] Caps)
Review of Systems
-
All complete 12 point ROS have been inquired and found negative other than stated in HPI
Physical Exam
Vital Signs
Vital Signs
Temp Pulse Resp BP Pulse Ox
98.1 F 52 11 130/50 97
07/21/23 08:02 07/21/23 09:15 07/21/23 09:15 07/21/23 09:15 07/21/23 09:15
Lab Results
WBC 9.2 10^3/uL (4.8-10.8) 07/21/23 03:15
RBC 2.84 10^6/uL (4.70-6.10) L 07/21/23 03:15
Hgb 8.4 g/dL (13.0-18.0) L 07/21/23 03:15
Hct 26.4 % (39.0-52.0) L 07/21/23 03:15
Plt Count 154 10^3/uL (130-400) 07/21/23 03:15
Sodium 132 mmol/L (135-145) L D 07/21/23 04:24
Potassium 4.8 mmol/L (3.5-5.1) 07/21/23 04:24
Chloride 99 mmol/L (98-107) 07/21/23 04:24
Carbon Dioxide 25 mmol/L (22-30) 07/21/23 04:24
BUN 49 mg/dl (9-20) H 07/21/23 04:24
Creatinine 6.0 mg/dL (0.7-1.3) H* 07/21/23 04:24
eGFR 8.97 07/21/23 04:24
Glucose 141 mg/dl (70-99) H 07/21/23 04:24
Calcium 8.0 mg/dl (8.4-10.2) L 07/21/23 04:24
Okx-P-Edcxnsgrgeo Pept 78050 pg/ml 07/20/23 16:46
Albumin 4.2 g/dl (3.5-5.0) 07/20/23 16:46
CXR:
IMPRESSION:
There is mild diffuse coarsening of the interstitial markings throughout both lungs, more prominent than on the prior studies such as may be seen with bronchiolitis.
CT abd:
IMPRESSION:
There is no evidence of acute pathology.
There is mild-moderate thinning of the renal cortex bilaterally
There are multiple bilateral renal cysts
Physical Exam
General: Awake, Alert, Oriented, AOx3 and No Distress
HEENT: EOMI, Anicteric and Facial Symmetry
Respiratory: Clear, Normal Excursion and Nonlabored Respirations
Cardiac: S1/S2 and Regular Rate/Rhythm
Breast: Deferred by me
Abdomen: Soft, Nontender and Nondistended
Musculoskeletal: No Cyanosis and No Edema
Skin: No Rash, Warm and Dry
Neuro: Nonfocal/Grossly Intact
Psych: Mood/afflect pleasant, Insight/judgement good and Appropriate
Vascular Access: AVG
Data Reviewed
-
Radiology: Report Reviewed by me, Discussed with Nurse, Discussed with Patient and Discussed with Family
Labs: Labs Reviewed by me, Discussed with Nurse, Discussed with Patient and Discussed with Family
Assessment/Plan
-
Assessment:
Abdominal pain unclear cause
Acute hypoxic respiratory failure likely from CHF exacerbation
Hypertensive emergency
ESRD MWF HD at [facility]
left UE AVG
GERD
CAD
Anemia of chronic disease
Elevated trop likely demand ischemia
HLD
DM-II
hypothyroidism
DCHF
Hyponatremia
Plan:
A/w abd pain and HTN emergency
off nicardipine this am
plan isolated UF today 3kg
suspect he may have lost dry wt since recent admit and ongoing abd pain with decreased intake
need to challenge EDW
on multi drug regimen for HTN -will send ARR and check renal duplex
Abd pain no clear etiology, if persists consider GI consult
Dialysis tomorrow per schedule
high dose ABDIAS on HD
detail d/w pt and daughter
d/w nursing
--- NOTE | 2023-07-21 11:03 | W.PN.NEPH.HD ---
Assessment
-
pt seen during HD
isolated UF of 3kg, off nicardipine gtt , SBP 130-150s
monitor BPs post HD, resume home meds
AVG functions well
Progress Note - Hemodialysis
-
Date of Service: July 21, 2023
Duration: 15 minutes and 2 hours
Opti-Dialyzer: 160
Ultrafiltration: Other (3kg)
Blood Flow: 350
Dialysate Flow: 600
Heparin: no
EPO: no
[2023-07-21 11:52] LABS: Glucose - Point of Care 266 mg/dl (70-99)
[2023-07-21] MEDS: NOVOLOG FLEXPEN-LOW RESISTANCE 3 UNITS SC (12:03)
[2023-07-21] MEDS: ZESTRIL 40 MG PO (12:04)
[2023-07-21] MEDS: NEPHROCAP 1 CAPSULE PO (12:04)
--- NOTE | 2023-07-21 12:44 | CM ---
CM following re: discharge planning.
Reviewed pt's chart, met with pt and pt's daughter at bedside.
Pt is a 78 year old male, admitted with primary dx of Acute hypoxic respiratory insufficiency due to acute on chronic HFpEF.
Per daughter, pt speaks Kazakh and he understands if speak to him slowly. Pt lives with daughter in a 2SH, 1 step to enter, has 2 supportive children. 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
No DME or SNF history. Pt is on HD treatment, [facility], [facility], 10:30 a.m chair time, daughter to transport.
PCP: Ricci Garber
Pharmacy: [facility]
D/C plan: home with [facility] and resumptions of outpatient HD treatment at [facility].
CM will follow with discharge plan updates as hospitalization progresses
[2023-07-21] MEDS: PLAVIX 75 MG PO (18:23)
[2023-07-21] MEDS: NOVOLOG FLEXPEN-LOW RESISTANCE 1 UNITS SC (18:31)
[2023-07-21 18:38] LABS: Glucose - Point of Care 197 mg/dl (70-99)
--- NOTE | 2023-07-21 20:30 | PTCARENOTE ---
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 pt minimal assist back to bed from chair, denture care, POC discussed, call anthony with pt, bed alarm on.
[2023-07-21 21:38] LABS: Glucose - Point of Care 254 mg/dl (70-99)
[2023-07-21] MEDS: LANTUS 0.110000000000000001 UNITS SC (21:56)
[2023-07-21] MEDS: APRESOLINE PO (21:56)
[2023-07-21] MEDS: NOVOLOG FLEXPEN 3 UNITS SC (21:57)
[2023-07-22] VITALS (29 sets, daily range): BP systolic 136–210; BP diastolic 46–129
[2023-07-22 04:48] LABS: Hematocrit 28.8 % (39.0-52.0); Mean Corp Hgb Conc. 31.3 g/dL (33.0-37.0); Mean Corpuscular Hgb 28.5 pg (27.0-31.0); Mean Corpuscular Volume 91.1 fL (80.0-94.0); Mean Platelet Volume 11.1 fL (7.4-10.4); Platelet Count 161 10^3/uL (130-400); Red Blood Cell Count 3.16 10^6/uL (4.70-6.10); White Blood Cell Count 7.2 10^3/uL (4.8-10.8)
[2023-07-22 05:18] LABS: Blood Urea Nitrogen 61 mg/dl (9-20); Calcium 7.9 mg/dl (8.4-10.2); Carbon Dioxide 22 mmol/L (22-30); Chloride 95 mmol/L (98-107); Glucose 121 mg/dl (70-99); Potassium 5.1 mmol/L (3.5-5.1); Sodium 131 mmol/L (135-145); eGFR 7.09
[2023-07-22] MEDS: HEPARIN 500 UNITS IV ×2 (07:40→08:40)
[2023-07-22] MEDS: PROTONIX 40 MG PO ×2 (08:29→20:18)
[2023-07-22] MEDS: BUMEX 4 MG PO (08:29)
[2023-07-22] MEDS: HEPARIN 5000 UNITS SC ×2 (08:29→20:18)
[2023-07-22] MEDS: LIPITOR 10 MG PO (08:29)
[2023-07-22] MEDS: NOVOLOG FLEXPEN-LOW RESISTANCE SC ×2 (08:30→12:30)
[2023-07-22] MEDS: SYNTHROID 75 MCG PO (08:33)
[2023-07-22 08:36] LABS: Glucose - Point of Care 116 mg/dl (70-99)
[2023-07-22] MEDS: RETACRIT 10000 UNITS IV (08:44)
--- NOTE | 2023-07-22 08:51 | W.PN.NEPH.HD ---
Assessment
-
Patient seen on dialysis
A.m. antihypertensives were held prior to dialysis
Pushing UF to see if blood pressure is responsive
Blood pressure currently greater than 190
Secondary hypertensive workup in progress
Progress Note - Hemodialysis
-
Date of Service: July 22, 2023
Duration: 30 minutes and 3 hours
Potassium Bath: 2
Calcium Bath: 2.5
Opti-Dialyzer: 160
Ultrafiltration: Other (3kg)
Blood Flow: 400
Dialysate Flow: 600
Heparin: 500 times two
EPO: 10K
--- NOTE | 2023-07-22 09:04 | W.PN.HOSP.TC ---
Today's Communication/Plan
-
see bold
Assessment / Plan
Assessment / Plan
Gen: NAD, Awake and alert
Eyes: EOMI, PERRLA, no scleral icterus.
Neck: supple.
CV: RRR, +S1/S2, no m/r/g.
Resp: CTAB, no rales, wheezes, or rhonchi.
Abd: +BS, soft, NT, ND
Skin: No rashes.
Neuro: CN 2-12 intact, non-focal.
Psych: Normal mood and affect.
CT A/P: No evidence of acute pathology.
CXR: There is mild diffuse coarsening of the interstitial markings throughout both lungs, more prominent than on the prior studies such as may be seen with bronchiolitis.
Acute hypoxic respiratory insufficiency due to acute on chronic HFpEF:
-CXR above
-Bumex continued
-daily wts, I/Os
-volume removal via HD
Hypertensive urgency:
-was on Nicardipine gtt, now off
-cont Imdur/Lisinopril/Nifedipine/Hydralazine/Clonidine
-IV Hydralazine PRN
-renal may adjust oral antihypertensives today (discussed with renal)
R hip pain:
-known OA as per daughter
-check R hip Xray
-PT/OT
Other problems:
Hyponatremia, mild
ESRD: cont HD, renal c/s
Abdominal pain: CT A/P NEG, etiology unclear
GERD: cont Protonix
CAD: cont Plavix/statin
Elevated trop likely acute nonischemic myocardial injury and ESRD
HLD: cont statin
DM2: cont Lantus/SSI/accuchecks
Anemia of chronic disease
Hypothyroidism: cont Levoxyl
Pt's daughter updated at bedside.
FULL/Heparin
Total time spent on today's encounter was 51 minutes which included time spent in counseling the patient/family regarding diagnosis and treatment plan as listed above, goals of care, and symptom management. Case was discussed with nursing staff,
specialists, and care coordinators/case management. All labs and imaging personally reviewed by me. Remainder the time spent in detailed review of previous records, lab data, imaging, and other medical provider documentation.
Anticipated Discharge: 24 - 48 hours
Subjective/Interval History
-
Date of Service: July 22, 2023
Pt c/o R hip pain.
Objective Data
-
Labs:
Laboratory Results
07/22/23
04:32
WBC 7.2
Hgb 9.0 L
Hct 28.8 L
Plt Count 161
Sodium 131 L
Potassium 5.1
Chloride 95 L
Carbon Dioxide 22
BUN 61 H
Creatinine 7.3 H*
Glucose 121 H
Calcium 7.9 L
Vital Signs:
Vital Signs
Temp Pulse Resp BP Pulse Ox
97.5 F 67 16 195/64 95
07/22/23 07:40 07/22/23 08:29 07/22/23 06:00 07/22/23 08:29 07/22/23 06:00
I&O
07/21/23 07/22/23 07/23/23
06:59 06:59 06:59
Intake Total 175.0 / 187.5 1452.5 / 1452.5
Output Total 0 / 0
Balance 175.0 / 187.5 1452.5 / 1452.5
[2023-07-22] MEDS: ADALAT 20 MG PO ×2 (09:15→20:52)
[2023-07-22] MEDS: APRESOLINE 50 MG PO ×3 (09:16→22:39)
[2023-07-22] MEDS: IMDUR (EXTENDED RELEASE) 30 MG PO ×2 (09:16→20:52)
[2023-07-22] MEDS: CATAPRES 0.299999999999999989 MG PO ×2 (09:16→20:52)
[2023-07-22] MEDS: NEPHROCAP 1 CAPSULE PO (11:20)
[2023-07-22] MEDS: ZESTRIL 40 MG PO (11:20)
--- NOTE | 2023-07-22 11:26 | PTCARENOTE ---
pt awake and alert, NSR on monitor , initial BP 158/61, his blood pressure shawna during the first hour of HD to 210/69 oral antihypertensives given , now BP down to 165/54 , he is on room air with sats of 94% , currently NPO for renal ultra sound
after HD complete and just completed now pulled off 3kg , pt co R hip pain , for x-ray , pt is now written for Med/Surg status
[2023-07-22 12:17] LABS: Glucose - Point of Care 120 mg/dl (70-99)
[2023-07-22] MEDS: APRESOLINE 10 MG IV (14:23)
--- NOTE | 2023-07-22 15:48 | PTCARENOTE ---
pt to transfer to room 2129 , report called to receiving RN
--- NOTE | 2023-07-22 16:03 | CM ---
CM reviewed chart- ADC 1-2 days
Pt downgraded form ICU to med/surg
PT/OT evals ordered and pending
Pt is current with [facility]- update to Tomasa/liaison per her request
CM will continue to follow for dc planning
Follow PT/OT recommendations
Discharge Disposition- home with [facility] and outpt HD [facility] vs possible higher needs
[facility] Fax- [phone]
--- NOTE | 2023-07-22 16:27 | PTCARENOTE ---
pt transferred to from ICU via wheelchair. pt oriented to room and call light. pt just finished a late lunch upstairs prior to being brought down. pt received HD this afternoon
[2023-07-22] MEDS: NOVOLOG FLEXPEN-LOW RESISTANCE 3 UNITS SC (18:08)
[2023-07-22 18:09] LABS: Glucose - Point of Care 277 mg/dl (70-99)
[2023-07-22] MEDS: PLAVIX 75 MG PO (18:11)
[2023-07-22 21:39] LABS: Glucose - Point of Care 252 mg/dl (70-99)
[2023-07-22] MEDS: LANTUS 0.110000000000000001 UNITS SC (22:39)
[2023-07-23] MEDS: SYNTHROID 75 MCG PO (05:57)
[2023-07-23 06:29] LABS: Hematocrit 32.6 % (39.0-52.0); Hemoglobin 10.5 g/dL (13.0-18.0); Mean Corp Hgb Conc. 32.2 g/dL (33.0-37.0); Mean Corpuscular Hgb 28.5 pg (27.0-31.0); Mean Corpuscular Volume 88.6 fL (80.0-94.0); Mean Platelet Volume 11.2 fL (7.4-10.4); Platelet Count 197 10^3/uL (130-400); Red Blood Cell Count 3.68 10^6/uL (4.70-6.10); Red Cell Dist. Width 16.9 % (11.5-14.5); White Blood Cell Count 6.8 10^3/uL (4.8-10.8)
[2023-07-23 06:51] LABS: Glucose - Point of Care 195 mg/dl (70-99)
[2023-07-23 06:54] LABS: Blood Urea Nitrogen 40 mg/dl (9-20); Calcium 8.1 mg/dl (8.4-10.2); Carbon Dioxide 26 mmol/L (22-30); Chloride 91 mmol/L (98-107); Glucose 169 mg/dl (70-99); Potassium 4.7 mmol/L (3.5-5.1); Sodium 133 mmol/L (135-145); eGFR 12.03
[2023-07-23 07:25] VITALS: BP 171/48
--- NOTE | 2023-07-23 07:29 | W.PN.HOSP.TC ---
Addendum entered and electronically signed by Sajan Mason MD 07/23/23 12:33:
Nonischemic myocardial injury
Hypertensive emergency
Addendum entered and electronically signed by Sajan Mason MD 07/23/23 11:17:
Patient is medically cleared for discharge as per discussion with Dr. Mccallum.
Total time spent on d/c = 34 min. This included today's physical exam, progress note, review of laboratory and diagnostic data, preparation of discharge documents and prescriptions, and discussions about the pt's hospital course and discharge plan
with the patient and other medical pathology teacher involved in the patient's care.
Original Note:
Today's Communication/Plan
-
d/c today if OK with renal
Assessment / Plan
Assessment / Plan
Gen: NAD, Awake and alert
Eyes: EOMI, PERRLA, no scleral icterus.
Neck: supple.
CV: remains RRR, +S1/S2, no m/r/g.
Resp: remains CTAB, no rales, wheezes, or rhonchi.
Skin: No rashes.
Neuro: remains CN 2-12 intact, non-focal.
Psych: Normal mood and affect.
CT A/P: No evidence of acute pathology.
CXR: There is mild diffuse coarsening of the interstitial markings throughout both lungs, more prominent than on the prior studies such as may be seen with bronchiolitis.
B/L renal artery U/S: Examination significantly limited as above. Within the limitations, no flow-limiting renal artery stenosis identified sonographically.
Acute hypoxic respiratory insufficiency due to acute on chronic HFpEF:
-CXR above
-Bumex continued
-daily wts, I/Os
-volume removal via HD
Hypertensive urgency:
-was on Nicardipine gtt, now off
-cont Imdur/Lisinopril/Nifedipine/Clonidine
-IV Hydralazine PRN
-increase Hydralazine to 75mg TID
R hip pain:
-known OA as per daughter
-R hip Xray: Moderate bilateral hip osteoarthritis. Stable.
-PT/OT
Other problems:
Hyponatremia, mild
ESRD: cont HD, renal c/s
Abdominal pain: CT A/P NEG, etiology unclear
GERD: cont Protonix
CAD: cont Plavix/statin
Elevated trop likely acute nonischemic myocardial injury and ESRD
HLD: cont statin
DM2: cont Lantus/SSI/accuchecks
Anemia of chronic disease
Hypothyroidism: cont Levoxyl
Pt's daughter updated at bedside.
FULL/Heparin
Anticipated Discharge: Today
Subjective/Interval History
-
Date of Service: July 23, 2023
Denies chest pain or shortness of breath.
Objective Data
-
Labs:
Laboratory Results
07/23/23
05:38
WBC 6.8
Hgb 10.5 L
Hct 32.6 L
Plt Count 197 D
Sodium 133 L
Potassium 4.7
Chloride 91 L
Carbon Dioxide 26
BUN 40 H
Creatinine 4.7 H*
Glucose 169 H
Calcium 8.1 L
Vital Signs:
Vital Signs
Temp Pulse Resp BP Pulse Ox
98.3 F 72 19 168/52 96
07/22/23 23:19 07/22/23 23:19 07/22/23 23:19 07/22/23 23:19 07/22/23 23:19
I&O
07/22/23 07/23/23 07/24/23
06:59 06:59 06:59
Intake Total 1452.5 / 1452.5 680 / 680
Output Total 0 / 0 0 / 0
Balance 1452.5 / 1452.5 680 / 680
[2023-07-23] MEDS: ADALAT 20 MG PO (08:39)
[2023-07-23] MEDS: PROTONIX 40 MG PO (08:39)
[2023-07-23] MEDS: CATAPRES 0.299999999999999989 MG PO (08:39)
[2023-07-23] MEDS: IMDUR (EXTENDED RELEASE) 30 MG PO (08:39)
[2023-07-23] MEDS: BUMEX 4 MG PO (08:39)
[2023-07-23] MEDS: NOVOLOG FLEXPEN-LOW RESISTANCE 1 UNITS SC (08:40)
[2023-07-23] MEDS: APRESOLINE 75 MG PO (08:40)
[2023-07-23] MEDS: HEPARIN 5000 UNITS SC (08:41)
[2023-07-23] MEDS: LIPITOR 10 MG PO (08:45)
[2023-07-23 09:57] VITALS: BP 111/34
--- NOTE | 2023-07-23 10:54 | W.PN.NEPH.PH ---
Today's Communication / Plan
-
discharge
Assessment/Plan
-
Assessment:
Abdominal pain unclear cause
Acute hypoxic respiratory failure likely from CHF exacerbation
Hypertensive emergency
ESRD MWF HD at [facility]
left UE AVG
GERD
CAD
Anemia of chronic disease
Elevated trop likely demand ischemia
HLD
DM-II
hypothyroidism
DCHF
Hyponatremia
Plan:
stable for discharge on esclatede hydralazine regimen
continue to reduce edw as oupatient at home [facility] Unit
detail d/w pt and daughter
d/w nursing
-
-
Date of Service: July 23, 2023
CC / HPI / ROS
-
Chief Complaint:
ESRD
History of Present Illness:
ESRD MWF
bp stable
Review of Systems:
no chest pain or sob
Labs
-
Labs:
WBC 6.8 10^3/uL (4.8-10.8) 07/23/23 05:38
RBC 3.68 10^6/uL (4.70-6.10) L 07/23/23 05:38
Hgb 10.5 g/dL (13.0-18.0) L 07/23/23 05:38
Hct 32.6 % (39.0-52.0) L 07/23/23 05:38
Plt Count 197 10^3/uL (130-400) D 07/23/23 05:38
Sodium 133 mmol/L (135-145) L 07/23/23 05:38
Potassium 4.7 mmol/L (3.5-5.1) 07/23/23 05:38
Chloride 91 mmol/L (98-107) L 07/23/23 05:38
Carbon Dioxide 26 mmol/L (22-30) 07/23/23 05:38
BUN 40 mg/dl (9-20) H 07/23/23 05:38
Creatinine 4.7 mg/dL (0.7-1.3) H* 07/23/23 05:38
eGFR 12.03 07/23/23 05:38
Glucose 169 mg/dl (70-99) H 07/23/23 05:38
Calcium 8.1 mg/dl (8.4-10.2) L 07/23/23 05:38
Ihv-C-Iiapryvbtjb Pept 21807 pg/ml 07/20/23 16:46
Albumin 4.2 g/dl (3.5-5.0) 07/20/23 16:46
Physical Exam
-
Vital Signs:
Vital Signs
Temp Pulse Resp BP Pulse Ox
98.0 F 64 18 111/34 100
07/23/23 07:25 07/23/23 07:25 07/23/23 07:25 07/23/23 09:57 07/23/23 07:25
Cardiovascular:: Regular rate and rhythm
Respiratory:: Bilateral: CTA
Lung Excursion:: Normal
Abdomen:: Nontender and Soft
Bowel Sounds:: Normal
Extremity Edema:: None: Bilateral:
Kennedy Catheter: No
--- NOTE | 2023-07-23 11:32 | PN.CDI ---
CDI
- -
CDI:
Physician Documentation Request
Admit Date: 07/20/23 21:45
Dear Doctor Isabella,
Please review the following and provide your response in the progress notes.
Clinical Indicators:
Pt admitted with Acute on Chronic CHF exacerbation
There is potentially conflicting documentation in the record regarding HTN.
Documented per ED, ' patient has had persistent high blood pressures, with highest being systolically in the 230s. Dose of hydralazine given and pressures persist. Concern for hypertensive crisis ....'
Documented per H&P and progress notes 07/20-07/22,' Hypertensive urgency was on Nicardipine gtt, now offcont Imdur/Lisinopril/Nifedipine/Clonidine IV Hydralazine PRN increase Hydralazine to 75mg TID...'
Documented per media executive consult , ' Hypertensive crisis requiring nicardipine drip - now off drip and receiving HD in unit...'
Nephrology consult, ' A/w abd pain and HTN emergency off nicardipine this am ...'
07/20/23
16:46 07/20/23
17:00 07/20/23
18:00
Blood pressure 219/62 206/55 231/80
07/20/23
19:51 07/20/23
20:30
Blood pressure 203/60 203/58
Clarify which, if any of the following, is a more accurate diagnosis reflecting the type and acuity of the documented hypertension:
Hypertensive Emergency - B/P is severely elevated (systolic > or = to 180 or diastolic > or = to 110) but can occur at lower levels especially in patients who did not previously have high B/P. There is usually associated organ damage. Symptoms may
include: memory loss, LOC, CVA, NV, angina, renal failure, pulmonary edema. Generally requires more aggressive treatment and a hospitalization.
Hypertensive Urgency - B/P is severely elevated (systolic > or = to 180 or diastolic > or = to 110) but there is no associated organ damage. Symptoms may include: headache, shortness of breath, nosebleeds, severe anxiety. Treatment usually consists
of addition to or adjusting of oral medications and does not generally necessitate hospitalization.
Hypertensive Crisis - an acute elevation in B/P that can lead to organ damage. Broad term that is further differentiated to include urgency or emergency based on presence of organ damage.
Other (please specify)
Use of terms such as suspected, likely, concern for, or probable (associated with a specific diagnosis that is being evaluated, monitored, or treated as if it exists) are acceptable and can be coded in the inpatient setting, when documented at the
time of discharge.
Thank you,
Nataly Rodriguez RN
CDI Specialist
[place] [employer]
Please use your independent medical judgment in providing your response.
[2023-07-23] MEDS: NEPHROCAP 1 CAPSULE PO (11:35)
[2023-07-23] MEDS: ZESTRIL PO (11:35)
[2023-07-23 11:41] LABS: Glucose - Point of Care 247 mg/dl (70-99)
[2023-07-23] MEDS: ZESTRIL 40 MG PO (11:42)
[2023-07-23] MEDS: NOVOLOG FLEXPEN-LOW RESISTANCE 2 UNITS SC (11:42)
[2023-07-23 11:43] VITALS: BP 145/50
--- NOTE | 2023-07-23 11:45 | PN.CDI ---
CDI
- -
CDI:
Physician Documentation Request
Admit Date: 07/20/23 21:45
Dear Doctor Isabella,
Please review the following and provide your response in the progress notes.
Clinical Indicators:
Pt admitted with Acute on Chronic CHF exacerbation
There is potentially conflicting documentation in the record regarding the elevated troponin dx.
Documented per H&P,' #elevated trop likely demand ischemia trop 0.131trend trop no c/o chest pain...'
Documented per progress notes 07/20-07/22, 'Elevated trop likely acute nonischemic myocardial injury and ESRD..'
Documented per nephrology consul and notes, ' Elevated trop likely demand ischemia...'
Documented per incident commander consult,' #Elevated troponin likely due to type II IA with demand ischemia..'
Please clarify of the conditions above which is the most correct regarding the documented troponin elevation:
Type 2 IA due to demand ischemia
Nonischemic myocardial injury
Other (please specify)
Use of terms such as suspected, likely, concern for, or probable (associated with a specific diagnosis that is being evaluated, monitored, or treated as if it exists) are acceptable and can be coded in the inpatient setting, when documented at the
time of discharge.
Thank you,
Nataly Rodriguez RN
CDI Specialist
[place] [employer]
Please use your independent medical judgment in providing your response.
--- NOTE | 2023-07-23 12:33 | W.DCSUMMARY ---
Discharge Summary
Discharge Data
Date of Admission: 07/20/23
Date of Discharge: 07/23/23
-
Pending Results: No
Hospital Course
Primary diagnoses:
Acute hypoxic respiratory insufficiency due to acute on chronic HFpEF due to hypertensive emergency
Secondary diagnoses:
Nonischemic myocardial injury
R hip pain due to known osteoarthritis
Hyponatremia
End-stage renal disease on hemodialysis
Abdominal pain
Gastroesophageal reflux disease
Coronary artery disease
Elevated trop due to acute nonischemic myocardial injury and end-stage renal disease
Hyperlipidemia
Type 2 diabetes
Anemia of chronic disease
Hypothyroidism
Consultants:
Nephrology
Critical care medicine
Imaging:
CT A/P: No evidence of acute pathology.
CXR: There is mild diffuse coarsening of the interstitial markings throughout both lungs, more prominent than on the prior studies such as may be seen with bronchiolitis.
B/L renal artery U/S: Examination significantly limited as above. Within the limitations, no flow-limiting renal artery stenosis identified sonographically.
Hospital course: 70-year-old male who presented with a chief complaint of abdominal pain as outlined in HPI on admission. CT scan of the abdomen pelvis was unremarkable as above. He was afebrile and had leukocytosis. Patient was found to have
hypertensive emergency. He was placed on a nicardipine drip. His Imdur, lisinopril, nifedipine, clonidine, hydralazine were continued. While hospitalized his hydralazine was increased to 75 mg 3 times a day. His Bumex was continued. He had
volume removal via hemodialysis. His blood pressure improved. At the time of discharge he did not have any acute complaints and was discharged in medically stable condition.
Discharge Plan
-
Patient Disposition: Home (Routine Discharge)
Discharge Diagnosis/Procedures: Acute hypoxic respiratory insufficiency due to acute on chronic heart failure with preserved ejection fraction, hypertensive urgency
Condition: Good
Diet: Diabetic, Carb Controlled and Restrict fluids to 48 oz
Activity: As tolerated
Driving Restrictions: As prior to admission
Bathing Restrictions: None
Specialty Instructions: Weigh Daily- Call MD for wt gain/loss 3 lbs overnight/5 lbs in 1 week
Referrals:
Ricci Gabrer MD [Family Provider] - in less than 1 week
Prescriptions:
New
hydralazine 25 mg Tablet
75 mg PO TID Qty: 270 0RF
Continued
bumetanide 2 MG tablet
4 mg PO DAILY
atorvastatin 10 MG tablet
10 mg PO DAILY
nifedipine 20 mg Capsule
20 mg PO BID
lisinopril 20 MG tablet
40 mg PO DAILY@1200
clopidogrel [Plavix] 75 MG tablet
75 mg PO QPM
omeprazole 40 MG capsule,delayed release(DR/EC)
40 mg PO BID
levothyroxine [Euthyrox] 75 MCG tablet
75 mcg PO DAILY
insulin glargine [Lantus Solostar U-100 Insulin] 100 unit/mL (3 mL) Insulin Pen
11 unit SC HS
cholecalciferol (vitamin D3) [Vitamin D3] 25 mcg (1,000 unit) Tablet
25 mcg PO DAILY@1200
ondansetron HCl 4 mg Tablet
4 mg PO Q8HPRN PRN (Reason: nausea)
isosorbide mononitrate 30 mg Tablet Extended Release 24 Hr
30 mg PO BID
clonidine HCl 0.3 mg Tablet
0.3 mg PO BID
calcium carbonate [Tums] 200 mg calcium (500 mg) Tablet,Chewable
400 mg PO BID
Julio C Caps 1 mg Capsule
1 cap PO DAILY@1200
insulin lispro 100 unit/mL Insulin Pen
14 sliding scale dose SC AC
lactulose [Enulose] 10 gram/15 mL Solution
22.5 g PO DAILYPRN PRN (Reason: CONSTIPATION)
guaifenesin [Mucinex] 600 mg Tablet Extended Release 12hr
600 mg PO BID
Discontinued
hydralazine 100 MG tablet
50 mg PO TID
Discharge Orders:
Discharge Patient (As Directed); Ordered 07/23/23
Ordered By: Sajan Mason
Discharge Date and Time
Print Language: KYRGYZ
--- NOTE | 2023-07-23 12:37 | PTCARENOTE ---
pt discharged to main lobby with daughter and . pt taken down via wheelchair after discharge instructions were done with pt and his daughter. IV site removed and vitals taken prior to discharge. see pt worklist for proper documentation.
--- NOTE | 2023-07-23 15:12 | CM ---
Patient seen at bedside with daughter and also present. Patient completed IMM earlier today and it was placed on chart. Patient also to be followed by [facility] and discharge summary to be sent to [facility] by nursing. Patient family to provide
transportation and ramesh sheets sent to [facility] for HD> CM will continue to follow for discharge planning needs.
Plan; home with [facility] and HD; [facility]
[2023-07-24 08:05] LABS: Aldosterone, Serum 12.2 ng/dL; Aldosterone/Renin Activ Ratio 6.8 ratio (<=25.0); Renin Activity Results 1.8 ng/mL/hr
== END 2023-07-23 12:40 | disposition home or self-care (01) | DRG 291 ==
LOC: 2 NORTH 21:45
PROVIDERS: Nurse Practitioner Primary Care; Physician Assistant; Registered Nurse; ADMITTING PHYSICIAN Internal Medicine; ATTENDING PHYSICIAN Internal Medicine; CONSULT PHYSICIAN Internal Medicine; EMERGENCY PHYSICIAN Emergency Medicine; FAMILY PHYSICIAN Family Medicine; OTHER PHYSICIAN Internal Medicine Critical Care Medicine
DX: I13.2 Hypertensive heart and chronic kidney disease with heart failure and with stage 5 chronic kidney disease, or end stage renal disease (principal); I50.33 Acute on chronic diastolic (congestive) heart failure; N18.6 End stage renal disease; I16.1 Hypertensive emergency; E87.1 Hypo-osmolality and hyponatremia; D63.8 Anemia in other chronic diseases classified elsewhere; E11.22 Type 2 diabetes mellitus with diabetic chronic kidney disease; E03.9 Hypothyroidism, unspecified; Z99.2 Dependence on renal dialysis; I5A Non-ischemic myocardial injury (non-traumatic); R06.89 Other abnormalities of breathing; I25.10 Atherosclerotic heart disease of native coronary artery without angina pectoris; E78.5 Hyperlipidemia, unspecified; K21.9 Gastro-esophageal reflux disease without esophagitis; K59.00 Constipation, unspecified; M16.11 Unilateral primary osteoarthritis, right hip; M25.551 Pain in right hip; N28.1 Cyst of kidney, acquired; R10.31 Right lower quadrant pain; R10.32 Left lower quadrant pain; R11.0 Nausea; Z79.4 Long term (current) use of insulin; Z79.890 Hormone replacement therapy; Z79.899 Other long term (current) drug therapy; Z87.01 Personal history of pneumonia (recurrent); Z86.19 Personal history of other infectious and parasitic diseases; Z86.73 Personal history of transient ischemic attack (TIA), and cerebral infarction without residual deficits; Z87.442 Personal history of urinary calculi
CPT/HCPCS: 71046; 73502; 74176; 80048; 80053; 82088; 82962; 83690; 83735; 83880; 84145; 84244; 84484; 85025; 85027; 85610; 85730; 87070; 93005; 93975; 96365; 96366; 96375; 99291; G0257; Q5106

== ENCOUNTER → 2023-08-27 15:16 | Outpatient (REF) | payer MEDICARE, OTHER, SELFPAY | LOC: HWRAD 15:16 | PROVIDERS: ATTENDING PHYSICIAN Family Medicine | DX: M79.672 Pain in left foot (principal); S90.32XA Contusion of left foot, initial encounter; S90.122A Contusion of left lesser toe(s) without damage to nail, initial encounter | CPT/HCPCS: 73630 ==